=== PATIENT | male | born 1970 | race Caucasian/White ===

== ENCOUNTER 2017-09-20 17:00 | Emergency (ER) | payer MEDICARE, OTHER ==
[2017-09-20] MEDS ORDERED: PROPARACAINE 0.5% OPHTH DROPS 15 ML BTL LEFT EYE STA (17:23)
[2017-09-20] MEDS ORDERED: TOBRAMYCIN 0.3% OPHTH DROPS 5 ML BTL LEFT EYE STA (18:14)
--- NOTE | 2017-09-20 18:24 | ED ---
General Adult HPI - General Chief complaint: ENT Stated complaint: fb left eye Time Seen by Provider: 09/20/17 17:23 Source: patient, RN notes reviewed Mode of arrival: ambulatory Limitations: no limitations - History of Present Illness Initial comments: This is a 46-year-old male who presents to the emergency department with chief complaint of left eye foreign body. Patient states that later this morning he developed left eye irritation. He states that he felt like he had a foreign body in his eye. He denies working around metal. He denies any vision changes or significant eye pain. He states that he did present to [facility] where they noticed a foreign body in the cornea but were unable to remove it. Kortney is at bedside and states that she did try to perform saline flushes at home. Patient denies any contact lens use. Denies recent fevers or chills, chest pain or shortness of breath, dizziness or headache, nausea or vomiting. - Related Data Allergies Allergy/AdvReac Type Severity Reaction Status Date / Time sulfamethoxazole Allergy Rash/Hives Verified 09/20/17 17:11 [From Bactrim] trimethoprim [From Bactrim] Allergy Rash/Hives Verified 09/20/17 17:11 Review of Systems ROS Statement: Those systems with pertinent positive or pertinent negative responses have been documented in the HPI. ROS Other: All systems not noted in ROS Statement are negative. Past Medical History Past Medical History: Hyperlipidemia, Thyroid Disorder History of Any Multi-Drug Resistant Organisms: None Reported Past Surgical History: Back Surgery, Hernia Repair, Tonsillectomy Past Psychological History: Anxiety Smoking Status: Never smoker Past Alcohol Use History: Occasional Past Drug Use History: None Reported General Exam - General Exam Comments Initial Comments: General: Awake and alert, well-developed; in no apparent distress. HEENT: Head atraumatic, normocephalic. Pupils are equal, round and reactive to light. Extraocular movements intact. Left conjunctiva is injected. There is a metallic corneal foreign body noted at approximately 8 PM at the outer border of the left iris. No foreign bodies noted under superior or inferior eyelids. Negative Josi's. Oropharynx moist without erythema or exudate. Neck: Supple. Normal ROM. Cardiovascular: Regular rate and rhythm. No murmurs, rubs or gallops. Chest symmetrical. Respiratory: Lungs clear to auscultation bilaterally. No wheezes, rales or rhonchi. Normal respiratory effort with no use of accessory muscles. Musculoskeletal: Normal ROM, no tenderness bilateral upper and lower extremities. Ambulating normally. Skin: [place], warm and dry without rashes or lesions. Neurological: Alert and oriented x3. CN II-XII grossly intact. Speech is fluent and answers are appropriate. No focal neuro deficits. Psychiatric: Normal mood and affect. No overt signs of depression or anxiety noted. Limitations: no limitations Course Vital Signs 09/20/17 17:09 Temperature 98.7 F Pulse Rate 65 Respiratory 18 Rate Blood Pressure 146/83 O2 Sat by Pulse 99 Oximetry Medical Decision Making - Medical Decision Making This is a 46-year-old male who presents to the emergency department with chief complaint of left corneal foreign body. Patient denies any significant eye pain or vision loss/changes. He states that he developed left eye irritation earlier today but does not recall a specific incident that would've caused a metal object to enter his eye. A metallic foreign body was noted at the border of the left iris. An attempt was made to remove it with an 18-gauge needle and this was successful for removing a piece of the metal. This case was then discussed with attending physician, Dr. Baires who also evaluated the patient. Recommended attempting to remove with the Dunn brush. Frances brush was used and rust ring was successfully removed. There does appear to be slight remnant of rust ring. Patient will be started on tobramycin eyedrops and will be given referral to ophthalmology. Patient recommended to follow up within 1-2 days. Vital signs are stable and patient is in no acute distress. He will be discharged home at this time. All questions were answered. Disposition Clinical Impression: Corneal foreign body Disposition: HOME SELF-CARE Condition: Good Instructions: Eye Foreign Body (ED), Tobramycin (Into the eye) Additional Instructions: Please apply 1-2 drops to the left eye every 4 hours for the next 5 days. Please follow up with Dr. Robles, ophthalmology within 1-2 days. Please follow up with primary care provider within 1-2 days. Return to emergency department if symptoms should worsen or any concerns arise. Is patient prescribed a controlled substance at d/c from ED?: No Referrals: Martha Sanchez DO [Primary Care Provider] - 1-2 days Allen Robles MD [STAFF PHYSICIAN] - 1-2 days Time of Disposition: 18:25
[2017-09-20 18:35] VITALS: BP 132/80; PULSE 98; RESP 20; TEMP 97.5
== END 2017-09-20 18:35 | disposition home or self-care (01) ==
LOC: EC 17:00
DX: T15.02XA Foreign body in cornea, left eye, initial encounter (principal); Z88.2 Allergy status to sulfonamides
CPT/HCPCS: 65220; 99283

== ENCOUNTER → 2018-12-07 | Outpatient (CLI) | payer MEDICAID, MEDICARE ==
--- NOTE | 2018-12-07 16:40 | MR ---
EXAMINATION TYPE: MR cervical spine wo con DATE OF EXAM: 12/07/2018 COMPARISON: None HISTORY: Pain and numbness into rt upper extremity TECHNIQUE: Multiplanar, multisequence images of the cervical spine were acquired. Cervical vertebra have normal alignment. There is slight narrowing of the C5-6 disc space. There is a minimal posterior disc bulge at C5-6 C6-7 without significant impingement on the spinal canal. Cervi brenton spinal cord has normal signal pattern. There is no edema. Spinal canal measures 9 mm at C5-6. Bra instem is intact. I see no bony destructive process. Facet joints are intact. There is no evidence of cervical paraspinal mass. There is left-sided neural foraminal impingement due to uncovertebral spurring at C5-6. There is righ t side C6-7 neural foraminal impingement due to uncovertebral spurring. IMPRESSION: Findings as above. Left side C5-6 neural foraminal impingement. Right side C6-7 neural foraminal impi ngement. Small posterior disc herniations. No spinal stenosis.
== END | disposition home or self-care (01) ==
LOC: RADMRIMAIN 08:32
PROVIDERS: ATTEND Family Medicine
DX: M54.2 Cervicalgia (principal)
CPT/HCPCS: 72141

== ENCOUNTER → 2019-01-13 | Outpatient (CLI) | payer MEDICAID, MEDICARE ==
[2019-01-13 11:59] VITALS: BP 158/102; PULSE 87
--- NOTE | 2019-01-13 12:18 | P.PAINCN ---
History of Present Illness - Reason for Consult Consult date: 01/13/19 - History of Present Illness This is initial consultation visit for this 48 years old male, with a few month history of severe neck pain with radiation to the right upper extremity, started in August 2018, patient denies any initiating event and reported that the pain is constant, severe and increases with any neck movement, associated with numbness and tingling sensation in the right upper extremity, mainly in the thumb index and middle finger on the right, he denies any motor or sensory deficit he denies any fever or night sweats. He denies any change in the bowel movement or urination, also patient had some low back pain which is started more than 10 years ago he had lumbar fusion surgery and he continued to have some numbness and tingling in his left lower extremity, but his main pain now, is in the neck with radiation to the right upper extremity Past Medical History Past Medical History: Hyperlipidemia, Thyroid Disorder Additional Past Medical History / Comment(s): neck pain, rt shoulder, rt arm numbness tingling History of Any Multi-Drug Resistant Organisms: None Reported Past Surgical History: Back Surgery, Hernia Repair, Tonsillectomy Past Anesthesia/Blood Transfusion Reactions: No Reported Reaction Past Psychological History: Anxiety Smoking Status: Never smoker Past Alcohol Use History: Occasional Past Drug Use History: None Reported Medications and Allergies Home Medications Medication Instructions Recorded Confirmed Type Atorvastatin [Lipitor] 10 mg PO HS 01/09/19 01/13/19 History Cetirizine HCl [Zyrtec ODT] 10 mg PO DAILY 01/09/19 01/13/19 History Ibuprofen 800 mg PO Q6H PRN 01/09/19 01/13/19 History Levothyroxine Sodium [Synthroid] 300 mcg PO DAILY 01/09/19 01/13/19 History Sertraline HCl [Zoloft] 100 mg PO DAILY 01/09/19 01/13/19 History Allergies Allergy/AdvReac Type Severity Reaction Status Date / Time sulfamethoxazole Allergy Rash/Hives Verified 01/09/19 13:28 [From Bactrim] trimethoprim [From Bactrim] Allergy Rash/Hives Verified 01/09/19 13:28 Physical Exam Vitals: Vital Signs Pulse BP Pulse Ox 01/13/19 11:54 87 158/102 95 REVIEW OF ORGAN SYSTEMS: CONSTITUTIONAL: No fevers or chills. No recent weight loss. EYES: History of troubles with vision. No glasses. HEENT: No difficulties with hearing. No nosebleeds. No difficulty swallowing. RESPIRATORY: Past pneumonia. Denies any troubles with breathing or dyspnea on exertion. CARDIOVASCULAR: Denies any chest pain, palpitations, or recent heart attacks. GASTROINTESTINAL: Denies fatty food intolerance. Has change in bowel habits and gas bloat. GENITOURINARY: Denies any blood in urine. Has increased urinary frequency. NEUROLOGICAL: numbness and tingling along the distal extremities. No seizure disorders or headaches. MUSCULOSKELETAL: Has back pain, stiffness or joint arthritis. SKIN: Past t skin cancer. No rash. PSYCHIATRIC: Denies current any suicidal thoughts. ENDOCRINE: Denies current thyroid disorders. Denies any blood sugar glucose intolerance. HEME/LYMPHATIC: Denies any lumps and bumps around the neck. History of deep venous thrombosis. ALLERGY/IMMUNOLOGY: No immunoglobulin therapy. No immune deficiencies. BREAST: Denies current breast lumps, pain or nipple discharge. Physical Examinations : Constitutiona : Cooperative , not in acute distress . HEENT : nech : supple , no Lymphadenopathy , normal thyroid size . eyes : no ptosis , no icterus, no photophobia . ENT : normal of hearing , normal oropharynx , no Thrush . Respiratory : Chest clear to auscultations Bilaterally , no wheezing , no Rhonchi . Cardiovascula : regular rate and rhythem , S1 , S2 , no S3 , no S4. Gastrointestina : abdomen soft no tenderness , bowel sounds , no organomegally . Genitourinary : [place] . neurologic : Cranial nerve II to XII intact , no focal neurological deffecit . psychatric : alert , oriented X 3 , appropriate affect , intact judgment and insight . Lymphatic : no Lymphadenopathy . musculoskeltal : Cervical Spine motor stregnth in the deltoid and biceps, normal right side , normal Left side motor stregnth biceps and the wrist extensors normal right side ,normal left side . motor stregnth in the triceps muscle . normal Right side , normal Left side Decreased sensation in the right upper extremity C5 and C6 dermatomal distribution deep tendon reflexes normal at the biceps , normal at Brachioradialis , normal at triceps. cervical facet loading test: Negative Bilaterally Spurling test positive bilaterally Neck distraction test positive bilaterally. Fer sign positive bilaterally. Lumber spine moter stegnth lower extremities ,thigh and legs 5/5 Right side , 5/5 Left side deep tendon reflexes : normal Knee Jerk , normal ankle Jerk positive lumber facet Loading Test Range of motion of the lumbar spine Flexion 30 degrees, extension 10 degrees strait leg raising test , positive at 60 degree Fabere test positive RT and positive LT . Results Comments: MRI of the cervical spine done at the current [facility]= C5 6 and C6 7 disc bulging and left-sided neural foraminal impingement Assessment and Plan Plan: Assessment and plan=1-cervical radiculopathy. 2-cervical degenerative disc disease. Patient could benefit from cervical epidural steroid injection at C7-T1 level,(right paramedian approach ) Procedure risk and benefits and alternatives discussed with the patient he agreed with the preceding Time with Patient: Greater than 30 PQRS Measure Charge Sheet Measure #130: Documentation of Current Meds in Medical Chart: Patient's medications documented in chart Measure #226: Tobacco Use: Screen & Cessation Intervention: Pt not a tobacco user Measure #111: Pneumonia Vaccination: Pneumococcal vaccine NOT administered or previously given Measure #47: Advance Care Plan: Advance care planning discussed & documented, pt chose/unable to give Measure #412: Opioid Treatment Agreement: No documentation of signed opioid treatment agreement Measure #408: Opioid Therapy Follow-up Evaluation: Patient had NO f/u eval minimum every 3 months during opioid therapy Measure #317: Preventitive Care & Scrn High Bld Press & F/U: Pre-hypertensive or hypertensive BP documented, pt will f/u with PCP Measure #128: Body Mass Index (BMI) Screening & Follow-up: BMI documented ABOVE normal parameters - f/u documented Measure #131: Pain Assessment & Follow-up: Pain positive & plan documented, Follow-up scheduled Measure #431: Unhealthy Alcohol Use Preventative Care & Scrn: Patient not identified as an unhealthy alcohol user PQRS Narrative: Smoking Status Never smoker Blood Pressure 158/102 Pain Intensity [Neck] 4 Scale Used Numeric (1 - 10) Hx Alcohol Use (MH) Yes Home Medications: Ambulatory Orders Atorvastatin [Lipitor] 10 mg PO HS 01/09/19 Cetirizine HCl [Zyrtec ODT] 10 mg PO DAILY 01/09/19 Ibuprofen 800 mg PO Q6H PRN 01/09/19 Levothyroxine Sodium [Synthroid] 300 mcg PO DAILY 01/09/19 Sertraline HCl [Zoloft] 100 mg PO DAILY 01/09/19
== END | disposition home or self-care (01) ==
LOC: PNWHC3 11:05
PROVIDERS: ATTEND Specialist
DX: M50.10 Cervical disc disorder with radiculopathy, unspecified cervical region (principal); Z79.891 Long term (current) use of opiate analgesic; Z79.899 Other long term (current) drug therapy; Z79.890 Hormone replacement therapy
CPT/HCPCS: 99211

== ENCOUNTER 2019-01-23 07:21 | Day surgery (SDC) | payer MEDICAID, MEDICARE ==
[2019-01-21 10:55] VITALS: BMI 36.6
[~2019-01-23 07:21] MED LIST: LACTATED RINGERS 1,000 ML IV SCH
[2019-01-23 07:44] VITALS: RESP 16; TEMP 98.4
--- NOTE | 2019-01-23 08:52 | P.PCN ---
Date of Procedure: 01/23/19 Procedure(s) Performed: . PROCEDURE 1. Cervical epidural steroid injection under fluoroscopic guidance, C6-7 (fluoroscopy images available in the radiology department ) 2. Cervical epidurogram. PREOPERATIVE DIAGNOSIS: 1- Cervical Degenerative Disc Diseases 2- Cervical radiculopathy. POSTOPERATIVE DIAGNOSIS: : 1- Cervical Degenerative Disc Diseases , 2- Cervical radiculopathy. ANESTHESIA: Local anesthesia with lidocaine 1 % , and moderate sedation, with Versed 2 mg and Fentanyl 50 mcg. EBL 0 PROCEDURE INDICATION: The patient with neck pain and radiculitis unresponsive to conservative treatment consents for procedure. PROCEDURE DESCRIPTION / TECHNIQUE: The patient was seen and identified in the preoperative area. Risks, benefits, complications, including but not limited to infections ,bleeding , allergic reactions to the medications ,and not complete pain releife, and alternatives were discussed with the patient, the patient agreed to proceed with the procedure and signed the consent. Patient was taken to the OR and time out was completed. The patient was placed in the prone position on the procedure table. A pillow was placed under the patients chest to increase the cervical interlaminar space. The cervical area was prepped and draped in the usual sterile fashion. Vital signs were closely monitored during the procedure. Conscious sedation was used during the procedure to decrease patients anxiety. Using anterior-posterior fluoroscopy, the C6-7interlaminar space was identified and the skin over this site was marked and then infiltrated with 1% lidocaine subcutaneously. Subsequently, a 20-gauge 3-1/2-inch Tuohy epidural needle was inserted and advanced toward the epidural space by means of the ``hanging-drop technique and guided by AP and lateral fluoroscopy. The correct needle position in the epidural space was verified with the injection of 2 mL of the water soluble contrast dye Isovue-200 and observing an excellent epidurogram with the epidural spread of the dye, after negative aspiration for blood and CSF and in the absence of paresthesias. Again after negative aspiration, mixture containing 20 mg Dexamethasone and 2 ml of preservative-free normal saline injected and a washout of epidurogram was seen. Needle was withdrawn intact, sk in was cleansed, and bandages were applied. Complications= none. Disposition= patient was placed in supine position and transferred to the recovery room area in stable condition and there was no evidence of upper or lower extremity motor or sensory deficit after the procedure patient was discharged from recovery room after discharge criteria met and home discharge instructions was given by the staff and patient will follow with the pain clinic in 2-4 weeks
[2019-01-23 09:32] VITALS: BP 118/87; PULSE 82
[2019-01-23] MEDS ORDERED: IV FLUID CONTINUATION 1,000 ML IV ONE (09:39)
--- NOTE | 2019-01-23 11:30 | FL ---
Fluoroscopy HISTORY: Pain 4 seconds fluoroscopy time supplied to the referring clinician. 1 intraoperative C-arm images docume nt the procedure. See dictated report from anesthesia.
== END 2019-01-23 09:43 | disposition home or self-care (01) ==
LOC: ORPAIN 07:21
PROVIDERS: ATTEND Specialist
DX: M50.10 Cervical disc disorder with radiculopathy, unspecified cervical region (principal); F41.9 Anxiety disorder, unspecified; E78.5 Hyperlipidemia, unspecified; E07.9 Disorder of thyroid, unspecified; Z88.2 Allergy status to sulfonamides; Z98.1 Arthrodesis status; Z90.89 Acquired absence of other organs; Z98.890 Other specified postprocedural states; Z79.890 Hormone replacement therapy; Z79.899 Other long term (current) drug therapy
CPT/HCPCS: 62321; J2250; J1100; J3010

== ENCOUNTER → 2019-02-06 | Day surgery (SDC) | payer MEDICAID, MEDICARE ==
[2019-02-05 10:34] VITALS: BMI 36.6
[~2019-02-06] MED LIST changes: +IV FLUID CONTINUATION 1,000 ML IV ONE; +LIDOCAINE 1% 20 ML VIAL (10MG/ML) FOR IV START INTRADERMA ONE
[2019-02-06 07:45] VITALS: RESP 16; TEMP 97.4
--- NOTE | 2019-02-06 09:06 | P.PCN ---
Date of Procedure: 02/06/19 Procedure(s) Performed: Diagnosis: Cervical radiculopathy Cervical degenerative disc disease POSTOPERATIVE DIAGNOSIS: Diagnoses: Cervical radiculopathy Cervical degenerative disc disease PROCEDURE Cervical Epidural steroid injection under fluoroscopic guidance at the C7-T1 interspace using right paramedian approach Cervical epidurogram ANESTHESIA: Local with 1% lidocaine 3 ml and IV sedation with Versed and fentanyl, sedation time 12 minutes Fluoroscopy was used for the procedure and images were saved in the radiology portion of the chart. EBL: Minimal PROCEDURE INDICATION: The patient presents with cervical radicular symptoms unresponsive to conservative treatment. This is the second cervical epidural steroid injection. PROCEDURE DESCRIPTION / TECHNIQUE: The patient was seen and identified in the preoperative area. Risks, benefits, complications including but not limited to infections ,bleeding ,allergic reaction to the medications ,nerve damage and incomplete pain relief, and alternatives were discussed with the patient. The patient agreed to proceed with the procedure and signed the consent. IV was started, and vital signs were stable. Patient was taken to the OR and time out was completed. The patient was placed in the prone position on procedure table and a pillow was placed under the chest area. The cervical area was prepped and draped in the usual sterile fashion. Conscious sedation was used during the procedure to decrease patients anxiety. Vital signs was monitored during the entire procedure. Using anterior-posterior fluoroscopy, the C7-T1 interlaminar space was identified and the skin over this site was marked and then infiltrated with 1% l idocaine subcutaneously. Subsequently, a 20-gauge Tuohy epidural needle was inserted and advanced toward the epidural space using the loss of resistance technique and guided by AP and 50 oblique fluoroscopy. The correct needle position in the epidural space was verified. After negative aspiration for blood and CSF and in the absence of paresthesias, Isovue 200 2 mL's was injected under live fluoroscopy with good epidural spread. After negative aspiration, a 5 ml mixture containing 10 mg of dexamethasone, 3 mL of preservative free normal saline and 1 mL of 1% lidocaine was injected. Needle was withdrawn intact, skin was cleansed, and bandages were applied. Comments: Initial placement of the needle in the epidural space revealed vascular uptake. The needle was removed and repositioned, with good epidural spread. DISPOSITION / PLANS: The patient was placed in a supine position and transferred to the recovery area in a stable condition for observation. There was no evidence of lower extremity motor or sensory deficit after the procedure. Patient was discharged from the recovery room after meeting discharge criteria. Home discharge instructions were given to the patient by the staff. The patient will be scheduled a follow-up in the clinic in 2-4 weeks.
[2019-02-06 09:24] VITALS: BP 128/85; PULSE 74
--- NOTE | 2019-02-06 11:58 | FL ---
Fluoroscopy HISTORY: Pain 9 seconds fluoroscopy time supplied to the referring clinician. 3 intraoperative C-arm images docume nt the procedure. See dictated report from anesthesia.
== END ==
LOC: ORPAIN 07:27
PROVIDERS: ATTEND Anesthesiology
DX: M50.10 Cervical disc disorder with radiculopathy, unspecified cervical region (principal); E78.5 Hyperlipidemia, unspecified; E07.9 Disorder of thyroid, unspecified; F41.9 Anxiety disorder, unspecified; Z98.1 Arthrodesis status; Z79.3 Long term (current) use of hormonal contraceptives; Z79.899 Other long term (current) drug therapy; Z88.2 Allergy status to sulfonamides
CPT/HCPCS: 62321; J2250; J1100; J3010; Q9966; 99152

== ENCOUNTER → 2019-03-06 | Outpatient (CLI) | payer MEDICAID, MEDICARE ==
--- NOTE | 2019-03-10 07:56 | P.PAINPG ---
Subjective Progress Note Date: 03/06/19 This is a follow-up visit for this 48 years old male, with a few month history of severe neck pain with radiation to the right upper extremity, started in August 2018, diagnosed with cervical radiculopathy and cervical degenerative disc disease. He underwent 2 cervical epidural steroid injections and reports excellent relief from these 2 procedures. His pain is rated as 0/10 in his neck. He does have some mild tingling in his right hand. Today, he would like us to address his low back pain. He has a history of L4 to sacrum fusion in 2011. He currently complains of low back pain radiating to left lateral hip, lateral thigh and front of left thigh, usually not past the knee. He does have numbness and burning in this distribution. Pain has been present since his surgery in 2011. Pain is worse with standing. He does have subjective left leg weakness. He currently takes Motrin 800 when necessary for pain. Low back Pain is rated as 4/10 at best and 10/10 at worst. He has not had any imaging recently of his low back. Review of systems is negative for chest pain, shortness of breath, new onset weakness, numbness/tingling, abdominal pain, malaise, fever, night sweats, chills, homicidal or suicidal ideation, or bowel or bladder incontinence. Physical exam: Vitals: Reviewed in EMR GENERAL: Well appearing, in no acute distress PSYCH: Mood and affect is appropriate. Awake, alert, and oriented SKIN: Skin color, texture, turgor normal, no rashes or lesions HEENT: Normocephalic, atraumatic. EOM intact CV: No pedal edema RESP: Respirations are unlabored, no audible wheezing GI: Abdomen non-distended MUSCULOSKELETAL: Bilateral upper and lower extremity strength is normal and symmetric. No atrophy or tone abnormalities are noted. Neck: No pain to palpation over the cervical paraspinous muscles. Spurling negative, Axial Loading Test negative, Yoder's sign negative. No pain with neck flexion, extension, or lateral flexion. No obvious deformity or signs of trauma. Normal cervical lordotic curve and normal cervical spine range of motion Lumbar spine: Straight leg raising in the sitting position is negative for radicular pain. Tenderness to palpation over the lumbar spine and paraspinous muscles bilaterally. Negative for pain with facet loading and back extension/ rotation. Buttocks: Tenderness to palpation over the left PSIS, left [place] test positive, left sacral thrust positive, left Gaenslen's test positive Extremities: Peripheral joint ROM is full and pain free without obvious instability or laxity in all four extremities. No edema or skin discolorations noted. Gait: Gait is normal NEUR: Bilateral upper and lower extremity coordination and muscle stretch reflexes are physiologic and symmetric. Negative clonus bilaterally. No loss of sensation is noted. Results Comments: MRI of the cervical spine done at the current [facility]= C5 6 and C6 7 disc bulging and left-sided neural foraminal impingement Assessment and Plan Plan: Assessment and plan= 1-cervical radiculopathy. 2-cervical degenerative disc disease. 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 I gave him prescription for the lumbar MRI. We also discussed a caudal epidural steroid injection with lysis of adhesions given his history of back surgery. Patient would like to think about further procedures prior to proceeding, and will call our clinic when he makes a decision. We can proceed with left SI joint injection prior to patient obtaining MRI. Follow-up: As needed PQRS Measure Charge Sheet Measure #130: Documentation of Current Meds in Medical Chart: Patient's medications documented in chart Measure #226: Tobacco Use: Screen & Cessation Intervention: Pt not a tobacco user Measure #111: Pneumonia Vaccination: Pneumococcal vaccine NOT administered or previously given Measure #47: Advance Care Plan: Advance care planning discussed & documented, pt chose/unable to give Measure #412: Opioid Treatment Agreement: No documentation of signed opioid treatment agreement Measure #317: Preventitive Care & Scrn High Bld Press & F/U: Normal blood pressure, f/u not required Measure #128: Body Mass Index (BMI) Screening & Follow-up: BMI documented ABOVE normal parameters - f/u documented Measure #131: Pain Assessment & Follow-up: Pain positive & plan documented, Follow-up PRN Measure #431: Unhealthy Alcohol Use Preventative Care & Scrn: Patient not identified as an unhealthy alcohol user PQRS Narrative: Smoking Status Never smoker Pain Intensity [Right Shoulder 0 ] Scale Used Numeric (1 - 10) Hx Alcohol Use (MH) Yes Home Medications: Ambulatory Orders Atorvastatin [Lipitor] 10 mg PO HS 01/09/19 Cetirizine HCl [Zyrtec ODT] 10 mg PO DAILY 01/09/19 Ibuprofen 800 mg PO Q6H PRN 01/09/19 Levothyroxine Sodium [Synthroid] 300 mcg PO DAILY 01/09/19 Sertraline HCl [Zoloft] 200 mg PO DAILY 01/09/19 Controlled Substance Measures - Controlled Substance Measures Is patient prescribed a controlled substance at discharge?: No
== END | disposition home or self-care (01) ==
LOC: PNWHC3 12:45
PROVIDERS: ATTEND Anesthesiology
DX: M50.10 Cervical disc disorder with radiculopathy, unspecified cervical region (principal); M51.36 Other intervertebral disc degeneration, lumbar region; M96.1 Postlaminectomy syndrome, not elsewhere classified; M46.1 Sacroiliitis, not elsewhere classified; Z79.899 Other long term (current) drug therapy; Z79.1 Long term (current) use of non-steroidal anti-inflammatories (NSAID)
CPT/HCPCS: 99211

== ENCOUNTER 2019-05-12 08:00 | Day surgery (SDC) | payer MEDICAID, MEDICARE ==
[2019-05-08 15:50] VITALS: BMI 36.6
[~2019-05-12 08:00] MED LIST changes: -IV FLUID CONTINUATION 1,000 ML IV ONE; -LIDOCAINE 1% 20 ML VIAL (10MG/ML) FOR IV START INTRADERMA ONE
[2019-05-12 08:13] VITALS: RESP 18; TEMP 97.8
[2019-05-12] MEDS ORDERED: LACTATED RINGERS 1,000 ML IV ONE (08:13)
[2019-05-12] MEDS ORDERED: PROPOFOL 10 MG/ML 20 ML VIAL IV ONE (08:31)
--- NOTE | 2019-05-12 08:36 | P.GSHP ---
History of Present Illness H&P Date: 05/12/19 Chief Complaint: Screening colonoscopy This a 48-year-old male been sick for screening colonoscopy. Patient denies any significant GI complaints. He has a previous history of colon polyps. Past Medical History Past Medical History: Hyperlipidemia, Thyroid Disorder Additional Past Medical History / Comment(s): neck pain, rt shoulder, rt arm numbness tingling History of Any Multi-Drug Resistant Organisms: None Reported Past Surgical History: Back Surgery, Hernia Repair, Tonsillectomy Additional Past Surgical History / Comment(s): PAIN CLINIC PROCEDURES Past Anesthesia/Blood Transfusion Reactions: No Reported Reaction, Family History of Problems w/ Anesthesia Additional Past Anesthesia/Blood Transfusion Reaction / Comment(s): dad ponv Smoking Status: Never smoker - Past Family History Mother Family Medical History: No Reported History Medications and Allergies Home Medications Medication Instructions Recorded Confirmed Type Atorvastatin [Lipitor] 10 mg PO HS 01/09/19 05/08/19 History Cetirizine HCl [Zyrtec ODT] 10 mg PO DAILY 01/09/19 05/08/19 History Ibuprofen 800 mg PO Q6H PRN 01/09/19 05/08/19 History Levothyroxine Sodium [Synthroid] 300 mcg PO DAILY 01/09/19 05/08/19 History Sertraline HCl [Zoloft] 200 mg PO DAILY 01/09/19 05/08/19 History Cholecalciferol [Vitamin D3 (25 2,000 unit PO DAILY 05/08/19 05/08/19 History Mcg = 1000 Iu)] Niacin 250 mg PO DAILY 05/08/19 05/08/19 History Testosterone Inj 1 dose INJ Q7D 05/08/19 05/08/19 History Allergies Allergy/AdvReac Type Severity Reaction Status Date / Time sulfamethoxazole Allergy Rash/Hives Verified 05/08/19 15:42 [From Bactrim] trimethoprim [From Bactrim] Allergy Rash/Hives Verified 05/08/19 15:42 Surgical - Exam Vital Signs Temp Pulse Resp BP Pulse Ox 97.8 F 94 18 156/87 95 05/12/19 08:12 05/12/19 08:12 05/12/19 08:12 05/12/19 08:12 05/12/19 08:12 - General well developed, well nourished, no distress - Eyes PERRL - ENT normal pinna - Neck no masses - Respiratory normal expansion - Cardiovascular Rhythm: regular - Abdomen Abdomen: soft, non tender Assessment and Plan Assessment: History: Possible. We'll perform screening colonoscopy.
[2019-05-12 08:52] VITALS: BP 124/74; PULSE 98
--- NOTE | 2019-05-12 08:52 | P.OP ---
Date of Procedure: 05/12/19 Preoperative Diagnosis: Screening colonoscopy Postoperative Diagnosis: Diverticulosis Procedure(s) Performed: Colonoscopy Anesthesia: MAC Surgeon: Juan Alberto Benson Condition: stable Disposition: PACU Description of Procedure: The patient's placed on the endoscopy table in the lateral position. He received IV sedation. Digital rectal exam performed which revealed no rebound. The possible colonoscope was then placed patient anus passed throughout the entire colon. The ileocecal valve was visualized. The cecum, ascending and transverse colon appeared normal. In the descending and sigmoid colon there was mild diverticulosis. The scope was then brought back the rectum and this appeared normal. Scope was withdrawn for patient.
== END 2019-05-12 09:24 | disposition home or self-care (01) ==
LOC: ORWHC2ENDO 08:00
PROVIDERS: ATTEND Surgery
DX: Z12.11 Encounter for screening for malignant neoplasm of colon (principal); K57.30 Diverticulosis of large intestine without perforation or abscess without bleeding; Z86.010 Personal history of colon polyps; E78.5 Hyperlipidemia, unspecified; E07.9 Disorder of thyroid, unspecified; K21.9 Gastro-esophageal reflux disease without esophagitis; F41.9 Anxiety disorder, unspecified; E66.9 Obesity, unspecified; R20.0 Anesthesia of skin; R20.2 Paresthesia of skin; M54.2 Cervicalgia; M25.511 Pain in right shoulder; Z98.890 Other specified postprocedural states; Z90.89 Acquired absence of other organs; Z79.899 Other long term (current) drug therapy; Z79.890 Hormone replacement therapy; Z88.2 Allergy status to sulfonamides; Z68.37 Body mass index [BMI] 37.0-37.9, adult
CPT/HCPCS: G0121; J2704; 45378

== ENCOUNTER → 2020-03-08 | Outpatient (CLI) | payer MEDICAID, MEDICARE ==
[2020-03-08 11:23] LABS: HCT 48.5 % (39.0-53.0); HGB 16.3 gm/dL (13.0-17.5); MCH 31.4 pg (25.0-35.0); MCHC 33.7 g/dL (31.0-37.0); MCV 93.2 fL (80.0-100.0); Platelet Count 216 k/uL (150-450); RDW 12.8 % (11.5-15.5); WBC 7.7 k/uL (3.8-10.6)
[2020-03-08 19:03] LABS: African American GFR (CKD) 73.2 (60.0-200.0); Albumin 4.8 g/dL (3.80-4.90); Albumin/Globulin Ratio 2.18 (1.60-3.17); Anion Gap 5.8 mmol/L (4.00-12.00); Carbon Dioxide 31.2 mmol/L (21.6-31.8); Chol/HDL Ratio 3.5; Globulin 2.2 g/dL (1.6-3.3); LDL Cholesterol,Calculated 64.2 mg/dL (0.0-131.0); Non-African American GFR(CKD) 63.2 (60.0-200.0); Potassium 4.7 mmol/L (3.5-5.5); Total Bilirubin 0.7 mg/dL (0.3-1.2); VLDL Calculation 40.8 mg/dL (5.00-40.00)
[2020-03-08 19:11] LABS: T4, Free (Free Thyroxine) 1.4 ng/dL (0.80-1.80)
== END | disposition home or self-care (01) ==
LOC: LABWHC1 09:47
PROVIDERS: ATTEND Family Medicine
DX: E03.9 Hypothyroidism, unspecified (principal); R79.89 Other specified abnormal findings of blood chemistry; R03.0 Elevated blood-pressure reading, without diagnosis of hypertension
CPT/HCPCS: 36415; 80053; 80061; 84402; 84403; 84439; 84443; 84481; 85027

== ENCOUNTER 2020-06-11 22:58 | Emergency (ER) | payer MEDICAID, MEDICARE ==
[2020-06-11 23:06] VITALS: TEMP 99
[2020-06-11] MEDS ORDERED: SODIUM CHLORIDE 0.9% 1,000 ML IV STA (23:26)
--- NOTE | 2020-06-11 23:38 | ED ---
General Adult HPI - General Chief complaint: Dizziness Stated complaint: Syncope Time Seen by Provider: 06/11/20 23:12 Source: patient, family Mode of arrival: wheelchair Limitations: no limitations - History of Present Illness Initial comments: Patient is a 49-year-old male with history of thyroid disorder, hyperlipidemia, presenting to the emergency department after he had a syncopal episode at home tonight. Patient states he was crouched down low looking in his freezer and when he stood up, had a syncopal event. Patient states Nexium remembered is waking up on the floor. He did hit his head on the tile floor. He is complaining of a headache, lightheadedness and some nausea. He denies any pain in his extremities. He denies any blurry vision, no chest pain or shortness of breath. No recent fever or chills. He denies any abdominal pain, no vomiting or diarrhea. states that patient has been monitoring his blood pressure and it seems to be elevated lately, they have been monitoring this at his PCPs office, he is currently not taking anything for hypertension. He has no further complaints at this time. Upon arrival to the ER, his vital signs are stable. - Related Data Home Medications Medication Instructions Recorded Confirmed Atorvastatin [Lipitor] 10 mg PO HS 01/09/19 05/08/19 Cetirizine HCl [Zyrtec ODT] 10 mg PO DAILY 01/09/19 05/08/19 Ibuprofen 800 mg PO Q6H PRN 01/09/19 05/08/19 Levothyroxine Sodium [Synthroid] 300 mcg PO DAILY 01/09/19 05/08/19 Sertraline HCl [Zoloft] 200 mg PO DAILY 01/09/19 05/08/19 Cholecalciferol [Vitamin D3 (25 2,000 unit PO DAILY 05/08/19 05/08/19 Mcg = 1000 Iu)] Niacin 250 mg PO DAILY 05/08/19 05/08/19 Testosterone Inj 1 dose INJ Q7D 05/08/19 05/08/19 Allergies Allergy/AdvReac Type Severity Reaction Status Date / Time sulfamethoxazole Allergy Rash/Hives Verified 06/11/20 23:05 [From Bactrim] trimethoprim [From Bactrim] Allergy Rash/Hives Verified 06/11/20 23:05 Review of Systems ROS Statement: Those systems with pertinent positive or pertinent negative responses have been documented in the HPI. ROS Other: All systems not noted in ROS Statement are negative. Past Medical History Past Medical History: Hyperlipidemia, Thyroid Disorder Additional Past Medical History / Comment(s): neck pain, rt shoulder, rt arm numbness tingling History of Any Multi-Drug Resistant Organisms: None Reported Past Surgical History: Back Surgery, Hernia Repair, Tonsillectomy Additional Past Surgical History / Comment(s): PAIN CLINIC PROCEDURES Past Anesthesia/Blood Transfusion Reactions: No Reported Reaction, Family History of Problems w/ Anesthesia Additional Past Anesthesia/Blood Transfusion Reaction / Comment(s): dad ponv Past Psychological History: Anxiety Smoking Status: Never smoker Past Alcohol Use History: Occasional Past Drug Use History: None Reported - Past Family History Mother Family Medical History: No Reported History General Exam - General Exam Comments Initial Comments: GENERAL: Patient is well-developed and well-nourished. Patient is nontoxic and in no acute distress. HEAD: Patient has a small hematoma at the front of his head, at the hairline, there is a small abrasion to this area as well. No signs of basal skull fracture. EYES: Pupils equal round and reactive to light, extraocular movements intact, sclera anicteric, conjunctiva are normal. Eyelids were unremarkable. ENT: TMs normal, nares patent, oropharynx clear without exudates. Moist mucous membranes. NECK: Normal range of motion, supple without lymphadenopathy or JVD. No midline tenderness. LUNGS: Unlabored respirations. Breath sounds clear to auscultation bilaterally and equal. No wheezes rales or rhonchi. HEART: Regular rate and rhythm without murmurs, rubs or gallops. ABDOMEN: Soft, nontender, normoactive bowel sounds. No guarding, no rebound. No masses appreciated. : Deferred MUSCULOSKELETAL: Normal extremities with adequate strength and normal range of motion, no pitting or edema. No clubbing or cyanosis. NEUROLOGICAL: Patient is alert and oriented x 3. Motor and sensory are also intact. Cranial nerves II through XII grossly intact. Symmetrical smile. Normal speech, normal gait. PSYCH: Normal mood, normal affect. SKIN: Warm, Dry, normal turgor, no rashes or lesions noted. Limitations: no limitations Course Vital Signs 06/11/20 06/12/20 06/12/20 23:00 00:25 01:26 Temperature 99.0 F Pulse Rate 112 H 98 Respiratory 20 18 Rate Blood Pressure 156/91 147/102 145/92 O2 Sat by Pulse 97 96 Oximetry 06/12/20 01:54 Temperature Pulse Rate 90 Respiratory 18 Rate Blood Pressure O2 Sat by Pulse 98 Oximetry EKG Findings - EKG Comments: EKG Findings:: Sinus tachycardia, septal infarct, age undetermined, no signs of an acute process. Ventricular rate 106, SD interval 160, QT 322. Medical Decision Making - Medical Decision Making Patient is a 49-year-old male here after having a syncopal event at home. Patient was crouched on looking in his freezer when he stood up had a syncopal event. He is complaining of a headache, nausea and some lightheadedness. He is a small hematoma to his front head. Labs are unremarkable including a normal troponin. Urine is normal. Chest x-ray and brain CT showed no acute process, EKG is showing sinus tach otherwise normal. Patient received 1 L fluids and does report improvement of symptoms. Patient's blood pressures improved to 145/92. Patient was able to sit and stand without lightheadedness. I discussed with patient this is most likely a vasovagal episode, along with some dehydration. I recommended following up with his family doctor. Patient is stable for discharge. Patient is in agreement with this plan of care. Return parameters were discussed with the patient and they verbalized understanding. Case discussed with Dr. Leon. - Lab Data Result diagrams: 06/11/20 23:35 06/11/20 23:35 Lab Results 06/11/20 06/11/20 06/11/20 Range/Units 23:35 23:35 23:35 WBC 9.5 (3.8-10.6) k/uL RBC 5.16 (4.30-5.90) m/uL Hgb 16.0 (13.0-17.5) gm/dL Hct 46.9 (39.0-53.0) % MCV 90.9 (80.0-100.0) fL MCH 31.0 (25.0-35.0) pg MCHC 34.1 (31.0-37.0) g/dL RDW 13.1 (11.5-15.5) % Plt Count 217 (150-450) k/uL MPV 7.9 Neutrophils % 68 % Lymphocytes % 20 % Monocytes % 4 % Eosinophils % 7 % Basophils % 1 % Neutrophils # 6.5 (1.3-7.7) k/uL Lymphocytes # 1.9 (1.0-4.8) k/uL Monocytes # 0.4 (0-1.0) k/uL Eosinophils # 0.7 (0-0.7) k/uL Basophils # 0.1 (0-0.2) k/uL PT 10.1 (9.0-12.0) sec INR 0.9 (<1.2) APTT 22.1 (22.0-30.0) sec Sodium 142 (137-145) mmol/L Potassium 4.1 (3.5-5.1) mmol/L Chloride 106 (98-107) mmol/L Carbon Dioxide 27 (22-30) mmol/L Anion Gap 9 mmol/L BUN 15 (9-20) mg/dL Creatinine 1.04 (0.66-1.25) mg/dL Est GFR (CKD-EPI)AfAm >90 (>60 ml/min/1.73 sqM) Est GFR (CKD-EPI)NonAf 83 (>60 ml/min/1.73 sqM) Glucose 105 H (74-99) mg/dL Calcium 9.8 (8.4-10.2) mg/dL Total Bilirubin 0.6 (0.2-1.3) mg/dL AST 40 (17-59) U/L ALT 41 (4-49) U/L Alkaline Phosphatase 81 (38-126) U/L Troponin I (0.000-0.034) ng/mL Total Protein 7.4 (6.3-8.2) g/dL Albumin 4.6 (3.5-5.0) g/dL Urine Color Urine Appearance (Clear) Urine pH (5.0-8.0) Ur Specific [place] (1.001-1.035) Urine Protein (Negative) Urine Glucose (UA) (Negative) Urine Ketones (Negative) Urine Blood (Negative) Urine Nitrite (Negative) Urine Bilirubin (Negative) Urine Urobilinogen (<2.0) mg/dL Ur Leukocyte Esterase (Negative) Urine RBC (0-5) /hpf Urine WBC (0-5) /hpf Hyaline Casts (0-2) /lpf Urine Mucus (None) /hpf 06/11/20 06/11/20 Range/Units 23:35 23:42 WBC (3.8-10.6) k/uL RBC (4.30-5.90) m/uL Hgb (13.0-17.5) gm/dL Hct (39.0-53.0) % MCV (80.0-100.0) fL MCH (25.0-35.0) pg MCHC (31.0-37.0) g/dL RDW (11.5-15.5) % Plt Count (150-450) k/uL MPV Neutrophils % % Lymphocytes % % Monocytes % % Eosinophils % % Basophils % % Neutrophils # (1.3-7.7) k/uL Lymphocytes # (1.0-4.8) k/uL Monocytes # (0-1.0) k/uL Eosinophils # (0-0.7) k/uL Basophils # (0-0.2) k/uL PT (9.0-12.0) sec INR (<1.2) APTT (22.0-30.0) sec Sodium (137-145) mmol/L Potassium (3.5-5.1) mmol/L Chloride (98-107) mmol/L Carbon Dioxide (22-30) mmol/L Anion Gap mmol/L BUN (9-20) mg/dL Creatinine (0.66-1.25) mg/dL Est GFR (CKD-EPI)AfAm (>60 ml/min/1.73 sqM) Est GFR (CKD-EPI)NonAf (>60 ml/min/1.73 sqM) Glucose (74-99) mg/dL Calcium (8.4-10.2) mg/dL Total Bilirubin (0.2-1.3) mg/dL AST (17-59) U/L ALT (4-49) U/L Alkaline Phosphatase (38-126) U/L Troponin I <0.012 (0.000-0.034) ng/mL Total Protein (6.3-8.2) g/dL Albumin (3.5-5.0) g/dL Urine Color Yellow Urine Appearance Clear (Clear) Urine pH 6.5 (5.0-8.0) Ur Specific [place] 1.025 (1.001-1.035) Urine Protein 1+ H (Negative) Urine Glucose (UA) Negative (Negative) Urine Ketones Negative (Negative) Urine Blood Negative (Negative) Urine Nitrite Negative (Negative) Urine Bilirubin Negative (Negative) Urine Urobilinogen 2.0 (<2.0) mg/dL Ur Leukocyte Esterase Negative (Negative) Urine RBC 3 (0-5) /hpf Urine WBC 2 (0-5) /hpf Hyaline Casts 1 (0-2) /lpf Urine Mucus Few H (None) /hpf Disposition Clinical Impression: Vasovagal syncope, Dehydration Disposition: HOME SELF-CARE Condition: Stable Instructions (If sedation given, give patient instructions): Dehydration (ED) Additional Instructions: Please return to the Emergency Department if symptoms worsen or any other lamar rns. Increase your water intake, regular diet. Please follow-up with your regular doctor. Is patient prescribed a controlled substance at d/c from ED?: No Referrals: Martha Sanchez DO [Primary Care Provider] - 1-2 days
[2020-06-11 23:45] LABS: Basophils # (A) 0.1 k/uL (0-0.2); Basophils % (A) 1 %; Eosinophils # (A) 0.7 k/uL (0-0.7); Eosinophils % (A) 7 %; HCT 46.9 % (39.0-53.0); Lymphocytes # (A) 1.9 k/uL (1.0-4.8); Lymphocytes % (A) 20 %; MCHC 34.1 g/dL (31.0-37.0); MCV 90.9 fL (80.0-100.0); Mean Platelet Volume 7.9; Monocytes # (A) 0.4 k/uL (0-1.0); Monocytes % (A) 4 %; Neutrophils # (A) 6.5 k/uL (1.3-7.7); Neutrophils % (A) 68 %; Platelet Count 217 k/uL (150-450); RBC 5.16 m/uL (4.30-5.90); RDW 13.1 % (11.5-15.5); WBC 9.5 k/uL (3.8-10.6)
[2020-06-11 23:53] LABS: ALT 41 U/L (4-49); AST 40 U/L (17-59); African American GFR (CKD) >90 (>60 ml/min/1.73 sqM); Albumin 4.6 g/dL (3.5-5.0); Alkaline Phosphatase 81 U/L (38-126); Anion Gap 9 mmol/L; Blood Urea Nitrogen 15 mg/dL (9-20); Calcium 9.8 mg/dL (8.4-10.2); Carbon Dioxide 27 mmol/L (22-30); Chloride 106 mmol/L (98-107); Glucose 105 mg/dL (74-99); Non-African American GFR(CKD) 83 (>60 ml/min/1.73 sqM); Potassium 4.1 mmol/L (3.5-5.1); Sodium 142 mmol/L (137-145); Total Bilirubin 0.6 mg/dL (0.2-1.3); Total Protein 7.4 g/dL (6.3-8.2)
--- NOTE | 2020-06-11 23:53 | XR ---
EXAMINATION TYPE: XR chest 2V DATE OF EXAM: 06/11/2020 COMPARISON: 12/26/2012 HISTORY: Syncope TECHNIQUE: 2 views FINDINGS: Heart and mediastinum are normal. Lungs are clear. Diaphragm is normal. Bony thorax is inta ct. The pulmonary vascularity is normal. There are chest leads. IMPRESSION: Normal chest. No change.
[2020-06-11 23:59] LABS: Appearance,Urine Clear (Clear); Bilirubin,Urine Negative (Negative); Blood,Urine Negative (Negative); Color,Urine Yellow; Glucose,Urine (UA) Negative (Negative); Hyaline Casts,Urine 1 /lpf (0-2); Ketones,Urine Negative (Negative); Leukocyte Esterase,Urine Negative (Negative); Mucus,Urine Few /hpf; Nitrite,Urine Negative (Negative); PH, Urine 6.5 (5.0-8.0); Protein,Urine 1+ (Negative); RBC,Urine 3 /hpf (0-5); Specific Gravity,Urine 1.025 (1.001-1.035); WBC,Urine 2 /hpf (0-5)
--- NOTE | 2020-06-12 | CT ---
EXAMINATION TYPE: CT brain wo con DATE OF EXAM: 06/11/2020 COMPARISON: 11/08/2010 HISTORY: Syncope, Fall CT DLP: 1168.40 mGycm Automated exposure control for dose reduction was used. Ventricles have normal size. There is no mass effect nor midline shift. There is no sign of intracran ial hemorrhage. The calvarium is intact. There is no evidence of cerebral edema. There is normal aera tion of the mastoid sinuses. Skull base is intact. IMPRESSION: Normal unenhanced head CT scan.
[2020-06-12 00:05] LABS: INR 0.9 (<1.2); Partial Thromboplastin Time 22.1 sec (22.0-30.0); Prothrombin Time 10.1 sec (9.0-12.0)
[2020-06-12 00:29] VITALS: RESP 18
[2020-06-12 01:27] VITALS: BP 145/92
[2020-06-12 01:55] VITALS: PULSE 90
== END 2020-06-12 01:55 | disposition home or self-care (01) ==
LOC: EC 22:58
DX: E86.0 Dehydration (principal); R55 Syncope and collapse; E78.5 Hyperlipidemia, unspecified; F41.9 Anxiety disorder, unspecified
CPT/HCPCS: 36415; 70450; 71046; 80053; 81001; 84484; 85025; 85610; 85730; 93005; 96360; 99284

== ENCOUNTER 2022-07-07 17:44 | Observation (INO) | payer MEDICAID, MEDICARE ==
[2022-07-07] MEDS ORDERED: SODIUM CHLORIDE 0.9% 500 ML 500 ML IV ONE (18:00)
[2022-07-07] MEDS ORDERED: ASPIRIN 325 MG TAB PO STA (18:00)
--- NOTE | 2022-07-07 18:24 | XR ---
EXAMINATION TYPE: XR chest 2V DATE OF EXAM: 07/07/2022 COMPARISON: 06/11/2020 TECHNIQUE: PA and lateral views submitted. HISTORY: Chest pain FINDINGS: The lungs are clear and there is no pneumothorax, pleural effusion, or focal pneumonia. Heart size normal and no overt failure. Osseous structures demonstrate hypertrophic and degenerative changes of the spine. Hyperinflation suggests COPD. IMPRESSION: 1. No acute process.
[2022-07-07 18:25] LABS: Basophils % (A) 1 %; Eosinophils # (A) 0.4 k/uL (0-0.7); Eosinophils % (A) 4 %; HGB 16.7 gm/dL (13.0-17.5); Lymphocytes # (A) 1.5 k/uL (1.0-4.8); Lymphocytes % (A) 17 %; MCH 31.5 pg (25.0-35.0); MCV 92.5 fL (80.0-100.0); Mean Platelet Volume 8.3; Monocytes # (A) 0.3 k/uL (0-1.0); Monocytes % (A) 4 %; Neutrophils # (A) 6.6 k/uL (1.3-7.7); Neutrophils % (A) 74 %; Platelet Count 244 k/uL (150-450); RDW 13.7 % (11.5-15.5)
[2022-07-07 18:30] LABS: Albumin 4.6 g/dL (3.5-5.0); Calcium 9.5 mg/dL (8.4-10.2); Magnesium 2.1 mg/dL (1.6-2.3); Potassium 4.4 mmol/L (3.5-5.1); Total Bilirubin 0.5 mg/dL (0.2-1.3); Total Protein 7.5 g/dL (6.3-8.2)
--- NOTE | 2022-07-07 18:30 | ED ---
General Adult HPI - General Chief complaint: Chest Pain Stated complaint: CHEST PAIN/LEFT ARM NUMB Time Seen by Provider: 07/07/22 17:55 Source: patient, RN notes reviewed, old records reviewed Mode of arrival: ambulatory Limitations: no limitations - History of Present Illness Initial comments: 51-year-old male presents for evaluation of one hour of central chest pain which he describes as a tightness associated with dyspnea. No prior history of CAD. Patient states he was working on his car and developed this pain and pressure. This was associated with some left arm paresthesia. No focal weakness. No vomiting. Patient states he was diaphoretic. - Related Data Home Medications Medication Instructions Recorded Confirmed Atorvastatin [Lipitor] 10 mg PO HS 01/09/19 05/08/19 Cetirizine HCl [Zyrtec ODT] 10 mg PO DAILY 01/09/19 05/08/19 Ibuprofen 800 mg PO Q6H PRN 01/09/19 05/08/19 Levothyroxine Sodium [Synthroid] 300 mcg PO DAILY 01/09/19 05/08/19 Sertraline HCl [Zoloft] 200 mg PO DAILY 01/09/19 05/08/19 Cholecalciferol [Vitamin D3 (25 2,000 unit PO DAILY 05/08/19 05/08/19 Mcg = 1000 Iu)] Niacin 250 mg PO DAILY 05/08/19 05/08/19 Testosterone Inj 1 dose INJ Q7D 05/08/19 05/08/19 Allergies Allergy/AdvReac Type Severity Reaction Status Date / Time sulfamethoxazole Allergy Rash/Hives Verified 07/07/22 17:50 [From Bactrim] trimethoprim [From Bactrim] Allergy Rash/Hives Verified 07/07/22 17:50 Review of Systems ROS Statement: Those systems with pertinent positive or pertinent negative responses have been documented in the HPI. ROS Other: All systems not noted in ROS Statement are negative. Past Medical History Past Medical History: Hyperlipidemia, Thyroid Disorder Additional Past Medical History / Comment(s): neck pain, rt shoulder, rt arm numbness tingling History of Any Multi-Drug Resistant Organisms: None Reported Past Surgical History: Back Surgery, Hernia Repair, Tonsillectomy Additional Past Surgical History / Comment(s): PAIN CLINIC PROCEDURES Past Anesthesia/Blood Transfusion Reactions: No Reported Reaction, Family History of Problems w/ Anesthesia Additional Past Anesthesia/Blood Transfusion Reaction / Comment(s): dad ponv Past Psychological History: Anxiety Smoking Status: Never smoker Past Alcohol Use History: Occasional Past Drug Use History: None Reported - Past Family History Mother Family Medical History: No Reported History General Exam Limitations: no limitations General appearance: alert, in no apparent distress Head exam: Present: atraumatic, normocephalic Eye exam: Present: normal appearance, PERRL ENT exam: Present: normal exam Neck exam: Present: normal inspection. Absent: tenderness, meningismus Respiratory exam: Present: normal lung sounds bilaterally. Absent: respiratory distress, wheezes, rales Cardiovascular Exam: Present: normal rhythm, tachycardia GI/Abdominal exam: Present: soft. Absent: distended, tenderness, guarding, r ebound Extremities exam: Present: normal inspection, normal capillary refill. Absent: pedal edema, calf tenderness Neurological exam: Present: alert, oriented X3, CN II-XII intact. Absent: motor sensory deficit Psychiatric exam: Present: normal affect, normal mood Skin exam: Present: warm, dry, intact. Absent: cyanosis Course Vital Signs 07/07/22 07/07/22 07/07/22 17:46 18:30 18:40 Temperature 98.8 F Pulse Rate 131 H 116 H 117 H Respiratory 20 18 18 Rate Blood Pressure 140/109 142/100 143/93 O2 Sat by Pulse 98 98 100 Oximetry 07/07/22 19:22 Temperature Pulse Rate 115 H Respiratory 18 Rate Blood Pressure 133/85 O2 Sat by Pulse 97 Oximetry EKG Findings - EKG Comments: EKG Findings:: EKG: Sinus tachycardia rate of 127 NM interval 152, QRS duration 88, QTC 374, no ST segment elevation Medical Decision Making - Medical Decision Making Was pt. sent in by a medical professional or institution (, PA, METAL ROASTER, urgent care, hospital, or care home...) When possible be specific @ -No Did you speak to anyone other than the patient for history (EMS, parent, family, police, friend...)? What history was obtained from this source @ -No Did you review nursing and triage notes (agree or disagree)? Why? @ -I reviewed and agree with nursing and triage notes Were old charts reviewed (outside hosp., previous admission, EMS record, old EKG, old radiological studies, urgent care reports/EKG's, care home records)? Report findings @ -No old charts were reviewed Differential Diagnosis (chest pain, altered mental status, abdominal pain women, abdominal pain men, vaginal bleeding, weakness, fever, dyspnea, syncope, headache, dizziness, GI bleed, back pain, seizure, CVA, palpatations, mental health, musculoskeletal)? @ -Differential Chest Pain: Stable Angina, Unstable Angina, STEMI, NSTEMI Aortic Dissection, Pneumothorax, Musculoskeletal, Esophageal Spasm GERD, Cholecystitis, Pancreatitis, Zoster, this is not meant to be an all-inclusive list. EKG interpreted by me (3pts min.). @ -As above X-rays interpreted by me (1pt min.). @ -Chest x-ray negative for acute findings, no focal pneumonia, no pneumothorax CT interpreted by me (1pt min.). @ -CT angiography of the chest, shows poor contrast bolus timing but concern for left upper lobe pulmonary embolism U/S interpreted by me (1pt. min.). @ -None done What testing was considered but not performed or refused? (CT, X-rays, U/S, labs)? Why? @ -None What meds were considered but not given or refused? Why? @ -None Did you discuss the management of the patient with other professionals (professionals i.e. , PA, METAL ROASTER, lab, RT, psych nurse, social director, warehouse clerk, teacher, military police officer, continuous pillowcase cutter)? Give summary @ -Case discussed with Arpan hernandez for [facility] Was smoking cessation discussed for >3mins.? @ -No Was critical care preformed (if so, how long)? @ -No Were there social determinants of health that impacted care today? How? (Homelessness, low income, unemployed, alcoholism, drug addiction, transportation, low edu. Level, literacy, decrease access to med. care, [place] [facility], rehab)? @ -No Was there de-escalation of care discussed even if they declined (Discuss DNR or withdrawal of care, Hospice)? DNR status @ -No What co-morbidities impacted this encounter? (DM, HTN, Smoking, COPD, CAD, Cancer, CVA, ARF, Chemo, Hep., AIDS, mental health diagnosis, sleep apnea, morbid obesity)? @ -Hypertension Was patient admitted / discharged? Hospital course, mention meds given and route, prescriptions, significant lab abnormalities, going to OR and other pertinent info. @ -51 -year-old male who presents for evaluation of exertional chest pain and dyspnea. Patient is tachycardic and had positive d-dimer. His EKG did not show any ST segment elevation. He has a normal CBC, normal CMP. His initial troponin is negative. He does have concern for pulmonary embolism although the timing of contrast was poor. He is given aspirin and started on heparin in the emergency department. He will be admitted with cardiology on consultation. Echo has been ordered and results pending. Undiagnosed new problem with uncertain prognosis? @ -No Drug Therapy requiring intensive monitoring for toxicity (Heparin, Nitro, Insulin, Cardizem)? @ -No Were any procedures done? @ -No Diagnosis/symptom? @ -Unstable angina, possible pulmonary embolism Acute, or Chronic, or Acute on Chronic? @ -Acute Uncomplicated (without systemic symptoms) or Complicated (systemic symptoms)? @ -Complicated Side effects of treatment? @ -No Exacerbation, Progression, or Severe Exacerbation? @ -No Poses a threat to life or bodily function? How? (Chest pain, USA, MS, pneumonia, PE, COPD, DKA, ARF, appy, cholecystitis, CVA, Diverticulitis, Homicidal, Suicidal, threat to staff... and all critical care pts) @ -Yes, arrhythmia, cardiac ischemia, - Lab Data Result diagrams: 07/07/22 18:02 07/07/22 18:02 Lab Results 07/07/22 07/07/22 07/07/22 Range/Units 18:02 18:02 18:02 WBC 9.0 (3.8-10.6) k/uL RBC 5.30 (4.30-5.90) m/uL Hgb 16.7 (13.0-17.5) gm/dL Hct 49.0 (39.0-53.0) % MCV 92.5 (80.0-100.0) fL MCH 31.5 (25.0-35.0) pg MCHC 34.0 (31.0-37.0) g/dL RDW 13.7 (11.5-15.5) % Plt Count 244 (150-450) k/uL MPV 8.3 Neutrophils % 74 % Lymphocytes % 17 % Monocytes % 4 % Eosinophils % 4 % Basophils % 1 % Neutrophils # 6.6 (1.3-7.7) k/uL Lymphocytes # 1.5 (1.0-4.8) k/uL Monocytes # 0.3 (0-1.0) k/uL Eosinophils # 0.4 (0-0.7) k/uL Basophils # 0.0 (0-0.2) k/uL PT 10.2 (9.0-12.0) sec INR 1.0 (<1.2) APTT 22.3 (22.0-30.0) sec D-Dimer 0.59 (<0.60) mg/L FEU Sodium 142 (137-145) mmol/L Potassium 4.4 (3.5-5.1) mmol/L Chloride 109 H (98-107) mmol/L Carbon Dioxide 23 (22-30) mmol/L Anion Gap 10 mmol/L BUN 16 (9-20) mg/dL Creatinine 1.10 (0.66-1.25) mg/dL Est GFR (CKD-EPI)AfAm 88 (>60 ml/min/1.73 sqM) Est GFR (CKD-EPI)NonAf 76 (>60 ml/min/1.73 sqM) Glucose 134 H (74-99) mg/dL Calcium 9.5 (8.4-10.2) mg/dL Magnesium 2.1 (1.6-2.3) mg/dL Total Bilirubin 0.5 (0.2-1.3) mg/dL AST 46 (17-59) U/L ALT 42 (4-49) U/L Alkaline Phosphatase 87 (38-126) U/L Troponin I (0.000-0.034) ng/mL Total Protein 7.5 (6.3-8.2) g/dL Albumin 4.6 (3.5-5.0) g/dL Lipase 126 (23-300) U/L 07/07/22 Range/Units 18:02 WBC (3.8-10.6) k/uL RBC (4.30-5.90) m/uL Hgb (13.0-17.5) gm/dL Hct (39.0-53.0) % MCV (80.0-100.0) fL MCH (25.0-35.0) pg MCHC (31.0-37.0) g/dL RDW (11.5-15.5) % Plt Count (150-450) k/uL MPV Neutrophils % % Lymphocytes % % Monocytes % % Eosinophils % % Basophils % % Neutrophils # (1.3-7.7) k/uL Lymphocytes # (1.0-4.8) k/uL Monocytes # (0-1.0) k/uL Eosinophils # (0-0.7) k/uL Basophils # (0-0.2) k/uL PT (9.0-12.0) sec INR (<1.2) APTT (22.0-30.0) sec D-Dimer (<0.60) mg/L FEU Sodium (137-145) mmol/L Potassium (3.5-5.1) mmol/L Chloride (98-107) mmol/L Carbon Dioxide (22-30) mmol/L Anion Gap mmol/L BUN (9-20) mg/dL Creatinine (0.66-1.25) mg/dL Est GFR (CKD-EPI)AfAm (>60 ml/min/1.73 sqM) Est GFR (CKD-EPI)NonAf (>60 ml/min/1.73 sqM) Glucose (74-99) mg/dL Calcium (8.4-10.2) mg/dL Magnesium (1.6-2.3) mg/dL Total Bilirubin (0.2-1.3) mg/dL AST (17-59) U/L ALT (4-49) U/L Alkaline Phosphatase (38-126) U/L Troponin I <0.012 (0.000-0.034) ng/mL Total Protein (6.3-8.2) g/dL Albumin (3.5-5.0) g/dL Lipase (23-300) U/L Disposition Clinical Impression: Unstable angina pectoris, Pulmonary embolism Disposition: ADMITTED IP TO THIS HOSP Condition: Stable Is patient prescribed a controlled substance at d/c from ED?: No Referrals: Martha Sanchez DO [Primary Care Provider] - 1-2 days Time of Disposition: 19:48
[2022-07-07 18:41] LABS: Partial Thromboplastin Time 22.3 sec (22.0-30.0); Prothrombin Time 10.2 sec (9.0-12.0)
--- NOTE | 2022-07-07 19:27 | CT ---
EXAMINATION TYPE: CT angio chest DATE OF EXAM: 07/07/2022 7:13 PM COMPARISON: 12/26/2012 HISTORY: pos d dimer, chest pain, sob CT DLP: 885.3 mGycm Automated exposure control for dose reduction was used. CONTRAST: CTA scan of the thorax is performed with IV Contrast, patient injected with 100ml mL of Isovue 370, p ulmonary embolism protocol. . FINDINGS: LUNGS: The lungs are grossly clear, there is no concerning consolidative pneumonia identified. Ther e is no pleural effusion or pneumothorax seen. The tracheobronchial tree is patent. On axial image 6 0 within the anterior segment right upper lobe there is a 1 mm nodule too small to characterize. Find ing likely benign. MEDIASTINUM: There is less than optimal enhancement of the pulmonary artery and its branches, grossly there is a small focal area of reduced enhancement on axial image 53 and 54 within the left upper lo be arterial branch. There are no greater than 1 cm hilar or mediastinal lymph nodes. Tiny pericardia l effusion is seen. OTHER: There is a hiatal hernia. Multilevel hypertrophic and degenerative changes of the spine. IMPRESSION: 1. Lack of enhancement of a a small left upper lobe pulmonary arterial branch noted best on axial brianne ge 53 which likely is artifactual but should be correlated clinically to exclude a small pulmonary em bolism. Correlate clinically.
[2022-07-07] MEDS ORDERED: HEPARIN SODIUM 1,000 UN/ML (10ML VL) IV ONE (19:40)
[2022-07-07] MEDS ORDERED: HEPARIN SODIUM 1,000 UN/ML (10ML VL) IV PRN (19:40)
[2022-07-07] MEDS ORDERED: ONDANSETRON 4 MG/2 ML VIAL IVP PRN (19:41)
[2022-07-07] MEDS ORDERED: NALOXONE 0.4 MG/ML 1 ML VIAL IV PRN (19:41)
[2022-07-07] MEDS ORDERED: MORPHINE SULFATE 4 MG/ML SYRINGE IV PRN (19:41)
[2022-07-07] MEDS ORDERED: ACETAMINOPHEN TAB 325 MG TAB PO PRN (19:41)
[2022-07-07] MEDS ORDERED: HEPARIN SOD,PORK IN 0.45% NACL 25,000 UNIT in 0.45% NACL 1 250ML.BAG IV SCH (19:45)
[2022-07-07] MEDS: SODIUM CHLORIDE 0.9% 1,000 ML IV SCH (19:56)
[2022-07-08 02:21] LABS: Basophils % (A) 0 %; Eosinophils # (A) 0.3 k/uL (0-0.7); Eosinophils % (A) 3 %; HCT 44.4 % (39.0-53.0); HGB 15.4 gm/dL (13.0-17.5); Lymphocytes # (A) 2.6 k/uL (1.0-4.8); Lymphocytes % (A) 27 %; MCH 32.4 pg (25.0-35.0); MCHC 34.7 g/dL (31.0-37.0); MCV 93.4 fL (80.0-100.0); Mean Platelet Volume 8.8; Monocytes # (A) 0.4 k/uL (0-1.0); Monocytes % (A) 4 %; Neutrophils # (A) 5.9 k/uL (1.3-7.7); Neutrophils % (A) 63 %; Platelet Count 222 k/uL (150-450); RBC 4.75 m/uL (4.30-5.90); RDW 14.1 % (11.5-15.5); WBC 9.4 k/uL (3.8-10.6)
[2022-07-08 02:31] LABS: Partial Thromboplastin Time 27.7 sec (22.0-30.0); Prothrombin Time 10.6 sec (9.0-12.0)
[2022-07-08] MEDS ORDERED: ATORVASTATIN 80 MG TAB PO STA (09:29)
[2022-07-08] MEDS ORDERED: ASPIRIN 325 MG TAB PO STA (09:29)
[2022-07-08] MEDS ORDERED: ALPRAZolam 0.5 MG TAB PO PRN (09:29)
[2022-07-08] MEDS ORDERED: NITROGLYCERIN SL TABS 0.4 MG TAB SUBLINGUAL PRN (09:29)
[2022-07-08] MEDS ORDERED: ALPRAZolam 0.25 MG TAB PO PRN (09:29)
[2022-07-08] MEDS ORDERED: SODIUM CHLORIDE 0.9% 1,000 ML in EMPTY BAG 1 BAG IV SCH (09:30)
--- NOTE | 2022-07-08 09:39 | P.CRDCN ---
History of Present Illness History of present illness: no cardiology HISTORY OF PRESENT ILLNESS: This is a 51-year-old male with a past medical history significant for hypertension, hyperlipidemia, hypothyroidism, and occasional use. 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 We have been asked to see the patient in consultation for chest pain. Patient examined at the bedside. Patient states yesterday he developed chest pain and shortness of breath with rather sudden onset. He states the pain was in the middle of his chest and felt like case sharp sensation. He states the pain radiated down his left arm. He reports feeling some numbness in his arm and on the left side of his face. He states he was short of breath and was having a hard time taking a deep breath. He does report the pain was worse with deep inspiration. The patient did not take anything for the pain and came to the ER for further evaluation. The patient states he was still having pain when he got to the ER but it resolved within an hour of being here. He denies having any further chest pain or pressure since coming to the hospital. He does report that his grandfather had CAD at early age but he is unsure of how old he was. The patient is a nonsmoker. He denies any drug use including marijuana. * EKG reveals sinus tachycardia with no signs of acute ischemia. Heart rate 127. * Chest xray negative for acute process * Laboratory data: WBC 9.4. Hemoglobin 15.4. Platelet count 222. D-dimer 0.59. Sodium 142. Potassium 4.4. BUN 16. Creatinine 1.10. Troponin negative 3. * Current home cardiac medications include minoxidil 2.5 mg daily, lisinopril 10 mg daily, and Lipitor 20mg every 48 hours * No previous echocardiogram on file * Patient denies any previous stress testing or cardiac catheterization. REVIEW OF SYSTEMS: At the time of my exam: CONSTITUTIONAL: Denies fever or chills. HEENT: Denies blurred vision, vision changes, or eye pain. Denies hemoptysis CARDIOVASCULAR: Denies chest pain. Denies orthopnea. Denies PND. Denies palpitations RESPIRATORY: Denies shortness of breath. GASTROINTESTINAL: Denies abdominal pain. Denies nausea or vomiting. HEMATOLOGIC: Denies bleeding disorders. GENITOURINARY: Denies any blood in urine. SKIN: Denies pruitis. Denies rash. PHYSICAL EXAM: VITAL SIGNS: Reviewed. GENERAL: Well-developed in no acute distress. HEENT: Head is normocephalic. Pupils are equal, round. Sclerae anicteric. Mucous membranes of the mouth are moist. Neck supple. No JVD or thyromegaly LUNGS: Respirations even and unlabored. Lungs essentially clear to auscultation bilaterally. HEART: Regular rate and rhythm. S1 and S2 heard. ABDOMEN: Soft. Nondistended. Nontender. EXTREMITIES: Normal range of motion. No clubbing or cyanosis. Peripheral pulses intact. No lower extremity edema NEUROLOGIC: Awake and alert. Oriented x 3. ASSESSMENT: Chest pain/possible unstable angina Hypertension Hyperlipidemia Occasional alcohol use Family history of premature coronary artery disease PLAN: Obtain 2-D echo to assess cardiac structure and function Continue IV heparin Add aspirin 81 mg daily Add atorvastatin 40 mg at night. Check lipid panel Add metoprolol tartrate 2.5 mg twice a day Continue home dose of lisinopril Add nitro paste Patient to undergo cardiac catheterization today with Dr. Mckeon Further recommendations pending patient's course Nurse practitioner note has been reviewed by physician. Signing provider agrees with the documented findings, assessment, and plan of care. Past Medical History Past Medical History: Hyperlipidemia, Hypertension, Thyroid Disorder Additional Past Medical History / Comment(s): neck pain, rt shoulder, rt arm numbness tingling History of Any Multi-Drug Resistant Organisms: None Reported Past Surgical History: Back Surgery, Hernia Repair, Tonsillectomy Additional Past Surgical History / Comment(s): PAIN CLINIC PROCEDURES Past Anesthesia/Blood Transfusion Reactions: No Reported Reaction, Family History of Problems w/ Anesthesia Additional Past Anesthesia/Blood Transfusion Reaction / Comment(s): dad ponv Smoking Status: Never smoker - Past Family History Mother Family Medical History: No Reported History Medications and Allergies Home Medications Medication Instructions Recorded Confirmed Type Levothyroxine Sodium [Synthroid] 300 mcg PO [id number] 01/09/19 07/07/22 History Atorvastatin [Lipitor] 20 mg PO Q48H 07/07/22 07/07/22 History PARoxetine HCL [Paxil] 60 mg PO DAILY 07/07/22 07/07/22 History Testosterone Cypionate 200 mg IM MO 07/07/22 07/07/22 History [Depo-Testosterone] lisinopriL [Zestril] 10 mg PO DAILY 07/07/22 07/07/22 History minoxidiL [Loniten] 2.5 mg PO DAILY 07/07/22 07/07/22 History Allergies Allergy/AdvReac Type Severity Reaction Status Date / Time sulfamethoxazole Allergy Rash/Hives Verified 07/07/22 17:50 [From Bactrim] trimethoprim [From Bactrim] Allergy Rash/Hives Verified 07/07/22 17:50 Physical Exam Vitals: Vital Signs Temp Pulse Pulse Resp BP BP Pulse Ox 07/08/22 03:20 98.0 F 86 16 132/73 97 07/07/22 22:34 98.6 F 113 H 16 135/85 98 07/07/22 21:46 104 H 18 138/78 97 07/07/22 20:17 106 H 18 98 07/07/22 19:22 115 H 18 133/85 97 07/07/22 18:40 117 H 18 143/93 100 07/07/22 18:30 116 H 18 142/100 98 07/07/22 17:46 98.8 F 131 H 20 140/109 98 Intake and Output 07/07/22 07/08/22 07/08/22 22:59 06:59 14:59 Intake Total 540.209 Balance 540.209 Intake: IV 20 Invasive Line 1 10 Invasive Line 2 10 Intake, IV Titration 520.209 Amount Heparin Sod,Pork in 0.45% 70.209 NaCl 25,000 unit In 0.45 % NaCl 1 250ml.bag @ 8.17 UNITS/KG/HR 10.006 mls/ hr IV .Q24H [facility]EN[facility] Rx#: [id number] Sodium Chloride 0.9% 1, 450 000 ml @ 75 mls/hr IV . [id number] [facility] Rx#:[id number] Other: Voiding Method Urinal Weight 122.47 kg Results 07/08/22 01:52 07/07/22 18:02 Cardiac Enzymes 07/07/22 07/07/22 07/07/22 Range/Units 18:02 18:02 21:00 AST 46 (17-59) U/L Troponin I <0.012 <0.012 (0.000-0.034) ng/mL 07/08/22 Range/Units 01:52 AST (17-59) U/L Troponin I <0.012 (0.000-0.034) ng/mL Coagulation 07/07/22 07/08/22 Range/Units 18:02 01:52 PT 10.2 10.6 (9.0-12.0) sec APTT 22.3 27.7 (22.0-30.0) sec CBC 07/07/22 07/08/22 Range/Units 18:02 01:52 WBC 9.0 9.4 (3.8-10.6) k/uL RBC 5.30 4.75 (4.30-5.90) m/uL Hgb 16.7 15.4 (13.0-17.5) gm/dL Hct 49.0 44.4 (39.0-53.0) % Plt Count 244 222 (150-450) k/uL Comprehensive Metabolic Panel 07/07/22 Range/Units 18:02 Sodium 142 (137-145) mmol/L Potassium 4.4 (3.5-5.1) mmol/L Chloride 109 H (98-107) mmol/L Carbon Dioxide 23 (22-30) mmol/L BUN 16 (9-20) mg/dL Creatinine 1.10 (0.66-1.25) mg/dL Glucose 134 H (74-99) mg/dL Calcium 9.5 (8.4-10.2) mg/dL AST 46 (17-59) U/L ALT 42 (4-49) U/L Alkaline Phosphatase 87 (38-126) U/L Total Protein 7.5 (6.3-8.2) g/dL Albumin 4.6 (3.5-5.0) g/dL Current Medications Generic Name Dose Route Start Last Admin Trade Name Freq PRN Reason Stop Dose Admin Acetaminophen 650 mg 07/07/22 19:41 Acetaminophen Tab 325 Mg Tab PO Q6HR PRN Mild Pain or Fever > 100.5 Heparin Sodium (Porcine) 0 unit 07/07/22 19:40 07/08/22 02:56 Heparin Sodium 1,000 Un/Ml (10ml Vl) IV 4,000 unit PER PROTOCOL PRN Administration Low PTT Protocol Heparin Sodium/Sodium Chloride 250 mls @ 10.006 mls/hr 07/07/22 19:45 07/08/22 02:57 25,000 unit/ Sodium Chloride IV 11.17 units/kg/hr .Q24H [facility]ENEE 13.68 mls/hr Titration Protocol 8.17 UNITS/KG/HR Sodium Chloride 1,000 mls @ 75 mls/hr 07/07/22 19:45 07/07/22 19:56 Saline 0.9% IV 75 mls/hr .[id number] RENEE Administration Morphine Sulfate 4 mg 07/07/22 19:41 Morphine Sulfate 4 Mg/Ml Syringe IV Q4HR PRN Severe Pain (Scale 7 to 10) Naloxone HCl 0.2 mg 07/07/22 19:41 Naloxone 0.4 Mg/Ml 1 Ml Vial IV Q2M PRN Opioid Reversal Ondansetron HCl 4 mg 07/07/22 19:41 Ondansetron 4 Mg/2 Ml Vial IVP Q8HR PRN Nausea And Vomiting Intake and Output 07/07/22 07/08/22 07/08/22 22:59 06:59 14:59 Intake Total 540.209 Balance 540.209 Intake: IV 20 Invasive Line 1 10 Invasive Line 2 10 Intake, IV Titration 520.209 Amount Heparin Sod,Pork in 0.45% 70.209 NaCl 25,000 unit In 0.45 % NaCl 1 250ml.bag @ 8.17 UNITS/KG/HR 10.006 mls/ hr IV .Q24H [facility] Rx#: [id number] Sodium Chloride 0.9% 1, 450 000 ml @ 75 mls/hr IV . [id number] [facility] Rx#:[id number] Other: Voiding Method Urinal Weight 122.47 kg 07/08/22 01:52 07/07/22 18:02
[2022-07-08 10:33] LABS: Glucose,Whole Blood 93 mg/dL (70-110)
[2022-07-08] MEDS: PARoxetine 20 MG TAB PO SCH (10:39)
[2022-07-08] MEDS: LEVOTHYROXINE 100 MCG TAB PO SCH (10:39)
[2022-07-08] MEDS: SODIUM CHLORIDE 0.9% 1,000 ML IV SCH ×3 (10:39→13:27)
[2022-07-08] MEDS: NITROGLYCERIN OINT 1 INCH/GM PACKET TOPICAL SCH ×2 (10:39→17:43)
[2022-07-08] MEDS: lisinopriL 10 MG TAB PO SCH (10:39)
[2022-07-08 11:05] LABS: Appearance,Urine Clear (Clear); Bilirubin,Urine Negative (Negative); Blood,Urine Negative (Negative); Color,Urine Yellow; Glucose,Urine (UA) Negative (Negative); Ketones,Urine Negative (Negative); Leukocyte Esterase,Urine Negative (Negative); Nitrite,Urine Negative (Negative); Protein,Urine Trace (Negative); Specific Gravity,Urine 1.042 (1.001-1.035); Urobilinogen,Urine <2.0 mg/dL (<2.0)
--- NOTE | 2022-07-08 12:23 | CA ---
Transthoracic Echo Report Name: Mp Mata Age: 51 Gender: M : 1970 Exam Date: 07/08/2022 07:36 Exam Location: [facility] Ht (in): 72 Wt (lb): 276 Ordering Physician: Syed Baires MD Attending/Referring Phys: [id number], Dequan Rivet Flunky Everton Sheehan RDCS Procedure CPT: Indications: PE/CP Cardiac Hx: HTN; CP; Obesity Technical Quality: Poor Contrast 1: Lumason Total Dose (mL): 4 Contrast 2: Total Dose (mL): MEASUREMENTS (Male / Female) Normal Values 2D ECHO LV Diastolic Diameter PLAX 4.6 cm 4.2 - 5.9 / 3.9 - 5.3 cm LV Systolic Diameter PLAX 2.8 cm LV Fractional Shortening PLAX 39.4 % IVS Diastolic Thickness 1.4 cm 0.6 - 1.0 / 0.6 - 0.9 cm IVS Systolic Thickness 1.9 cm LVPW Diastolic Thickness 1.5 cm 0.6 - 1.0 / 0.6 - 0.9 cm LVPW Systolic Thickness 2.1 cm LV Relative Wall Thickness 0.6 RV Internal Dim ED PLAX 3.8 cm LVOT Diameter 2.2 cm LA Systolic Diameter LX 3.5 cm 3.0 - 4.0 / 2.7 - 3.8 cm Ascending Aorta Diameter 3.0 cm M-MODE Aortic Root Diameter MM 3.1 cm LA Systolic Diameter MM 4.0 cm LA Ao Ratio MM 1.3 MV E Point Septal Separation 1.2 cm AV Cusp Separation MM 1.8 cm DOPPLER AV Peak Velocity 113.7 cm/s AV Peak Gradient 5.2 mmHg MV Peak Velocity 96.8 cm/s MV Peak Gradient 3.7 mmHg MV Mean Velocity 68.3 cm/s MV Mean Gradient 2.1 mmHg MV Velocity Time Integral 24.3 cm MV Deceleration Schleicher 466.6 cm/s??? MR Peak Velocity 71.0 cm/s MR Peak Gradient 2.0 mmHg Mitral E Point Velocity 70.7 cm/s Mitral A Point Velocity 84.7 cm/s Mitral E to A Ratio 0.8 MV Deceleration Time 151.5 ms MV E' Velocity 8.9 cm/s Mitral E to MV E' Ratio 7.9 TR Peak Velocity 91.3 cm/s TR Peak Gradient 3.3 mmHg Right Ventricular Systolic Press 8.3 mmHg PV Peak Velocity 93.0 cm/s PV Peak Gradient 3.5 mmHg FINDINGS Left Ventricle Left ventricular ejection fraction is estimated at 55-60 %. Mild concentric left ventricular hypertrophy. Grade 1 diastolic dysfunction. Normal systolic function. Right Ventricle Normal right ventricular size and function. Right Atrium Normal right atrial size. Left Atrium Mild left atrial dilatation. Mitral Valve Structurally normal mitral valve. Trace mitral regurgitation. Aortic Valve Trileaflet aortic valve. Tricuspid Valve Trace to mild tricuspid regurgitation. Pulmonic Valve Structurally normal pulmonic valve. Pericardium Normal pericardium. Echo free space anterior to the right ventricle likely represents a fat pad. Aorta Normal size aortic root and proximal ascending aorta. CONCLUSIONS Concentric left ventricular hypertrophy with normal LV systolic function Previewed by: Dr. Brian Mckeon MD (Electronically Signed) Final Date: 08 July 2022 12:22
[2022-07-08] MEDS ORDERED: VERAPAMIL 2.5 MG/ML 2 ML AMP ONE (12:26)
[2022-07-08] MEDS ORDERED: fentaNYL (PF) 50 MCG/ML 2 ML AMP ONE (12:27)
[2022-07-08] MEDS ORDERED: fentaNYL (PF) 50 MCG/1 ML VIAL IVP ONE (12:34)
[2022-07-08] MEDS ORDERED: LIDOCAINE 1% INJ 10MG/ML (5 ML VIAL-PF) SQ ONE (12:34)
[2022-07-08] MEDS ORDERED: MIDAZOLAM 2 MG/2 ML VIAL IVP ONE (12:34)
[2022-07-08] MEDS ORDERED: HEPARIN SODIUM 1,000 UN/ML (10ML VL) ONE (12:35)
[2022-07-08] MEDS ORDERED: VERAPAMIL SYRINGE (5 MG/10 ML) INTRAARTER ONE (12:39)
[2022-07-08] MEDS ORDERED: HEPARIN SODIUM 1,000 UN/ML (10ML VL) IV ONE (12:39)
[2022-07-08] MEDS ORDERED: IV FLUID CONTINUATION 1,000 ML IV ONE (12:40)
[2022-07-08] MEDS ORDERED: IOPAMIDOL-370 125ML BTL INJ ONE (12:43)
[2022-07-08] MEDS ORDERED: RX INFO: IV CONTRAST WAS GIVEN 1 EACH MISC MISCELLANE PRN (12:56)
--- NOTE | 2022-07-08 13:02 | HP ---
HISTORY AND PHYSICAL CHIEF COMPLAINTS: Chest pain, shortness of breath. HISTORY OF PRESENT ILLNESS: This is a 51-year-old gentleman with a past medical history of multiple medical issues including hypertension, hyperlipidemia, admitted with central chest pain and also has some shortness of breath. The troponins are negative and D-dimer is normal but left pulmonary artery embolism was suspected but poor methodology was also noted. Cardiology is following the patient, recommended cardiac catheterization. There is no history of any fever, rigors, or chills. PAST MEDICAL HISTORY: Reviewed include hypertension, hyperlipidemia, rest of the history and rest of the chart is also reviewed. HOME MEDICATIONS: Reviewed, lisinopril, doses and rest of medication are noted. ALLERGIES: Bactrim. FAMILY HISTORY: No history of heart disease or strokes in the family. SOCIAL HISTORY: No history of smoking. Occasional alcohol intake. REVIEW OF SYSTEMS: A 14-point review is negative except as mentioned earlier. PHYSICAL EXAMINATION: VITAL SIGNS: Pulse 96, blood pressure 120/60, respirations 21. HEENT: Conjunctivae normal. NECK: No jugular venous distention. CARDIOVASCULAR: S1, S2. RESPIRATIONS: Clear to auscultation. ABDOMEN: Soft. NERVOUS SYSTEM: No focal deficits. LABORATORY DATA: Noted. ASSESSMENT: 1. Chest pain, possible unstable angina, rule out coronary artery disease. 2. Rule out pulmonary embolism. 3. Hypertension. 4. Hyperlipidemia. 5. Multiple medical issues. RECOMMENDATIONS AND DISCUSSION: This 51-year-old gentleman presented with multiple complex medical issues. Monitor the patient closely. IV heparin, cardiology, planning a cardiac catheterization, beta blockers, antiplatelet agents. I would also recommend a pulmonary consultation with Dr. Betancourt, I told the possibility of pulmonary embolism. Prognosis guarded. Further recommendations will follow. Repeat labs. See orders for details. MMODL / IJN: [id number] /
--- NOTE | 2022-07-08 13:07 | P.CNPUL ---
History of Present Illness Consult date: 07/08/22 Requesting physician: Rao Banerjee Reason for consult: other (Chest pain and shortness of breath) Chief complaint: Chest pain and shortness of breath History of present illness: This is a 51-year-old white male with no previous significant past medical history except for dyslipidemia, hypothyroidism and hypertension. Nonsmoker, occasional drinker, patient presented to the ER with 1 hour history of substernal chest pain. 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 Pain radiated to his left neck and his left arm, felt numbness and tingling in his left face. Also develop shortness of breath with symptoms must have lasted about an hour. Patient was evaluated the ER, CBC was normal. Troponins were normal. EKG showed mostly sinus tachycardia, no acute ischemic changes noted on the EKG. D-dimer was normal. CT angiogram of the chest was done and the radiologist raised of a small left upper lobe arterial branch and he felt his mostly artifactual. His index of suspicion for pulmonary embolism is extremely low. Clinically the index of suspicion for pulmonary embolism is quite low. Nonetheless I was asked to see this patient in consultation for possible rule out pulmonary embolism. Patient was already seen by cardiology, and he is undergoing cardiac catheterization in the next hour or so. During my evaluation, the patient has minimal vague chest discomfort Review of Systems Constitutional: Negative HEENT: Negative Pulmonary: Negative Cardiac: As noted in HPI Hematologic: Negative Endocrine: Negative GI: Negative genitourinary: Negative Neurologic: Negative Psychiatric: Negative Skin: Negative Past Medical History Past Medical History: Hyperlipidemia, Hypertension, Thyroid Disorder Additional Past Medical History / Comment(s): neck pain, rt shoulder, rt arm numbness tingling History of Any Multi-Drug Resistant Organisms: None Reported Past Surgical History: Back Surgery, Hernia Repair, Tonsillectomy Additional Past Surgical History / Comment(s): PAIN CLINIC PROCEDURES Past Anesthesia/Blood Transfusion Reactions: No Reported Reaction, Family Histor y of Problems w/ Anesthesia Additional Past Anesthesia/Blood Transfusion Reaction / Comment(s): selena rosa Smoking Status: Never smoker - Past Family History Mother Family Medical History: No Reported History Medications and Allergies Home Medications Medication Instructions Recorded Confirmed Type Levothyroxine Sodium [Synthroid] 300 mcg PO AC-BRKFST 01/09/19 07/07/22 History Atorvastatin [Lipitor] 20 mg PO Q48H 07/07/22 07/07/22 History PARoxetine HCL [Paxil] 60 mg PO DAILY 07/07/22 07/07/22 History Testosterone Cypionate 200 mg IM MO 07/07/22 07/07/22 History [Depo-Testosterone] lisinopriL [Zestril] 10 mg PO DAILY 07/07/22 07/07/22 History minoxidiL [Loniten] 2.5 mg PO DAILY 07/07/22 07/07/22 History Allergies Allergy/AdvReac Type Severity Reaction Status Date / Time sulfamethoxazole Allergy Rash/Hives Verified 07/07/22 17:50 [From Bactrim] trimethoprim [From Bactrim] Allergy Rash/Hives Verified 07/07/22 17:50 Physical Exam Vitals: Vital Signs Temp Pulse Pulse Resp BP BP Pulse Ox 07/08/22 11:49 97.0 F L 96 21 121/69 96 07/08/22 09:23 93 L 07/08/22 08:00 96.7 F L 92 19 114/67 94 L 07/08/22 03:20 98.0 F 86 16 132/73 97 07/07/22 22:34 98.6 F 113 H 16 135/85 98 07/07/22 21:46 104 H 18 138/78 97 07/07/22 20:17 106 H 18 98 07/07/22 19:22 115 H 18 133/85 97 07/07/22 18:40 117 H 18 143/93 100 07/07/22 18:30 116 H 18 142/100 98 07/07/22 17:46 98.8 F 131 H 20 140/109 98 Intake and Output 07/07/22 07/08/22 07/08/22 22:59 06:59 14:59 Intake Total 540.209 383.604 Balance 540.209 383.604 Intake: IV 20 294 Invasive Line 1 10 Invasive Line 2 10 Sodium Chloride 0.9% 1, 244 000 ml In Empty Bag 1 bag @ 1 ML/KG/HR 122.47 mls/ hr IV .Q8H10M [facility] Rx#: [id number] Intake, IV Titration 520.209 89.604 Amount Heparin Sod,Pork in 0.45% 70.209 89.604 NaCl 25,000 unit In 0.45 % NaCl 1 250ml.bag @ 8.17 UNITS/KG/HR 10.006 mls/ hr IV .Q24H [facility] Rx#: [id number] Sodium Chloride 0.9% 1, 450 000 ml @ 75 mls/hr IV . [id number] [facility] Rx#:[id number] Other: Voiding Method Urinal Weight 122.47 kg Physical Exam: Revealed a 51-year-old white male in no distress on room air. O2 saturation is 96 Head: Atraumatic normocephalic. HEENT:[Neck is supple.] [No neck masses.] [No thyromegaly.] [No JVD.] Chest: [Clear throughout, no crackles, no rhonchi, no wheezes.] Cardiac Exam: [Normal S1 and S2, no S3 gallop, no murmur.] Abdomen: [Soft, nontender, no megaly, no rebound, no guarding, normal bowel sounds.] Extremities: [No clubbing, no edema, no cyanosis.] Neurological Exam: [No focal neurologic deficit.] Alert oriented 3. Psychiatric: Normal mood affect and normal mental status examination. Skin: No rash Results - Laboratory Findings CBC and BMP: 07/08/22 01:52 07/07/22 18:02 PT/INR, D-dimer PT 10.6 sec (9.0-12.0) 07/08/22 01:52 INR 1.0 (<1.2) 07/08/22 01:52 D-Dimer 0.59 mg/L FEU (<0.60) 07/07/22 18:02 Abnormal lab findings: Abnormal Labs 07/07/22 07/08/22 07/08/22 18:02 08:20 10:14 APTT 43.3 H Chloride 109 H Glucose 134 H Ur Specific [place] 1.042 H Urine Protein Trace H - Diagnostic Findings CT scan - chest: image reviewed (As noted in HPI) Assessment and Plan Assessment: Impression: Chest pain most likely cardiac in nature based on the clinical history. Strongly doubt pulmonary embolism based on the clinical history negative d-dimer and basically negative CT angiogram of the chest Benign essential hypertension Dyslipidemia 6 obesity Recommendation: Agree with cardiac catheterization No need for any further workup, no need for venous Doppler and no need for VQ scan at this point. We'll continue to follow Time with Patient: Greater than 30
[2022-07-08 15:41] LABS: Chol/HDL Ratio 3.73 Ratio; LDL Cholesterol,Calculated 73.7 mg/dL (0.0-131.0)
[2022-07-08] MEDS ORDERED: ATORVASTATIN 40 MG TAB PO SCH (21:00)
[2022-07-08] MEDS: METOPROLOL TARTRATE 12.5 MG TAB PO SCH (21:11)
--- NOTE | 2022-07-08 23:11 | CC ---
CARDIAC CATHETERIZATION REPORT INDICATION: Unstable angina. PROCEDURE NOTE: After obtaining informed consent, left heart catheterization and coronary angiogram were performed via the right radial artery using standard Rajan catheters. The patient tolerated the procedure well without any obvious immediate complications. The patient received moderate conscious sedation. Total sedation time was 11 minutes. Right radial artery access was obtained using Seldinger technique. A 6-Armenian sheath was placed, and catheters and wires were floated into the ascending aorta under fluoroscopic guidance. The patient tolerated the procedure well without any obvious immediate complications. He received verapamil and heparin per protocol. A TR band was used for hemostasis. FINDINGS: HEMODYNAMICS: 1. Left ventricular end-diastolic pressure is 11 mm. There is no significant gradient across the aortic valve. 2. Left ventriculogram: Left ventriculogram is not performed. ANGIOGRAPHIC DATA: 1. Right coronary artery: Right coronary artery is a large dominant vessel and is free of stenosis. 2. Left main coronary artery is a normal-sized vessel and is free of stenosis. It divides into left anterior descending coronary artery and circumflex coronary artery. 3. LAD and its branches, circumflex coronary artery and its branches are free of significant stenosis. CONCLUSIONS: 1. Normal coronary arteries. 2. Normal left ventricular end-diastolic pressure. PLAN: The patient's chest discomfort is noncardiac in origin and his management is going to be in the form of risk factor modification and optimal medical therapy. MMODL / IJN: [id number] /
[2022-07-09] MEDS: NITROGLYCERIN OINT 1 INCH/GM PACKET TOPICAL SCH ×2 (00:32→10:02)
[2022-07-09] MEDS: SODIUM CHLORIDE 0.9% 1,000 ML IV SCH ×2 (04:04→18:15)
[2022-07-09] MEDS: LEVOTHYROXINE 100 MCG TAB PO SCH (06:48)
[2022-07-09] MEDS ORDERED: HEPARIN SODIUM,PORCINE 10,000 UNIT in SODIUM CHLORIDE 0.9% 1,000 ML IRRIGATION PRN (07:00)
[2022-07-09] MEDS ORDERED: HEPARIN SODIUM,PORCINE 2,500 UNIT in SODIUM CHLORIDE 0.9% 250 ML IRRIGATION PRN (07:00)
[2022-07-09] MEDS: METOPROLOL TARTRATE 12.5 MG TAB PO SCH ×2 (10:01→21:01)
[2022-07-09] MEDS: PARoxetine 20 MG TAB PO SCH (10:01)
[2022-07-09] MEDS: lisinopriL 10 MG TAB PO SCH (10:02)
[2022-07-09] MEDS: ASPIRIN 81 MG PO SCH (10:02)
[2022-07-09 10:44] LABS: Basophils % (A) 0 %; Eosinophils # (A) 0.3 k/uL (0-0.7); Eosinophils % (A) 4 %; HCT 43.6 % (39.0-53.0); HGB 14.5 gm/dL (13.0-17.5); Lymphocytes # (A) 1.7 k/uL (1.0-4.8); Lymphocytes % (A) 22 %; MCH 31.3 pg (25.0-35.0); MCHC 33.3 g/dL (31.0-37.0); MCV 93.9 fL (80.0-100.0); Mean Platelet Volume 8.3; Monocytes # (A) 0.3 k/uL (0-1.0); Monocytes % (A) 5 %; Neutrophils % (A) 67 %; Platelet Count 219 k/uL (150-450); RBC 4.64 m/uL (4.30-5.90); RDW 13.7 % (11.5-15.5); WBC 7.4 k/uL (3.8-10.6)
[2022-07-09 10:50] LABS: African American GFR (CKD) >90 (>60 ml/min/1.73 sqM); Anion Gap 4 mmol/L; Blood Urea Nitrogen 12 mg/dL (9-20); Calcium 8.6 mg/dL (8.4-10.2); Carbon Dioxide 31 mmol/L (22-30); Chloride 107 mmol/L (98-107); Glucose 99 mg/dL (74-99); Non-African American GFR(CKD) >90 (>60 ml/min/1.73 sqM); Potassium 4.6 mmol/L (3.5-5.1); Sodium 142 mmol/L (137-145)
--- NOTE | 2022-07-09 11:22 | P.PN ---
Subjective Progress Note Date: 07/09/22 HISTORY OF PRESENT ILLNESS: This is a 51-year-old male with a past medical history significant for hypertension, hyperlipidemia, hypothyroidism, and occasional use. Patient does not follow with a district representative. We have been asked to see the patient in consultation for chest pain. Patient examined at the bedside. Patient states yesterday he developed chest pain and shortness of breath with rather sudden onset. He states the pain was in the middle of his chest and felt like case sharp sensation. He states the pain radiated down his left arm. He reports feeling some numbness in his arm and on the left side of his face. He states he was short of breath and was having a hard time taking a deep breath. He does report the pain was worse with deep inspiration. The patient did not take anything for the pain and came to the ER for further evaluation. The patient states he was still having pain when he got to the ER but it resolved within an hour of being here. He denies having any further chest pain or pressure since coming to the hospital. He does report that his grandfather had CAD at early age but he is unsure of how old he was. The patient is a nonsmoker. He denies any drug use including marijuana. * EKG reveals sinus tachycardia with no signs of acute ischemia. Heart rate 127. * Chest xray negative for acute process * Laboratory data: WBC 9.4. Hemoglobin 15.4. Platelet count 222. D-dimer 0.59. Sodium 142. Potassium 4.4. BUN 16. Creatinine 1.10. Troponin negative 3. * Current home cardiac medications include minoxidil 2.5 mg daily, lisinopril 10 mg daily, and Lipitor 20mg every 48 hours * No previous echocardiogram on file * Patient denies any previous stress testing or cardiac catheterization. 07/09/2022 Patient is status post cardiac catheterization revealing normal coronary arteries and normal left ventricular end-diastolic pressure. Patient examined this morning at the bedside. He denies chest pain or pressure. He denies shortness of breath. Vital signs are stable. Echocardiogram completed revealing ejection fraction 55-60%. Right radial cath site with pulse present. PHYSICAL EXAM: VITAL SIGNS: Reviewed. GENERAL: Well-developed in no acute distress. HEENT: Head is normocephalic. Pupils are equal, round. Sclerae anicteric. Mucous membranes of the mouth are moist. Neck supple. No JVD or thyromegaly LUNGS: Respirations even and unlabored. Lungs essentially clear to auscultation bilaterally. HEART: Regular rate and rhythm. S1 and S2 heard. ABDOMEN: Soft. Nondistended. Nontender. EXTREMITIES: Normal range of motion. No clubbing or cyanosis. Peripheral pulses intact. No lower extremity edema NEUROLOGIC: Awake and alert. Oriented x 3. ASSESSMENT: Chest pain/possible unstable angina, status post cardiac catheterization revealing normal coronary arteries Hypertension Hyperlipidemia Occasional alcohol use Family history of premature coronary artery disease PLAN: Continue current cardiac medications Patient is stable from a cardiac perspective Patient may be discharged home today from a cardiac standpoint Nurse practitioner note has been reviewed by physician. Signing provider agrees with the documented findings, assessment, and plan of care. Objective - Vital Signs Vital signs: Vital Signs Temp 97.4 F L 07/09/22 04:44 Pulse 82 07/09/22 04:44 Resp 16 07/09/22 04:44 BP 115/69 07/09/22 04:44 Pulse Ox 96 07/09/22 04:44 FiO2 Intake & Output 07/08/22 07/09/22 07/09/22 18:59 06:59 18:59 Intake Total 383.604 560 118 Output Total 450 Balance 383.604 110 118 Intake: IV 294 20 Invasive Line 1 20 Sodium Chloride 0.9% 1, 244 000 ml In Empty Bag 1 bag @ 1 ML/KG/HR 122.47 mls/ hr IV .Q8H10M [facility] Rx#: [id number] Intake, IV Titration 89.604 Amount Heparin Sod,Pork in 0.45% 89.604 NaCl 25,000 unit In 0.45 % NaCl 1 250ml.bag @ 8.17 UNITS/KG/HR 10.006 mls/ hr IV .Q24H [facility] Rx#: [id number] Oral 540 118 Output: Urine 450 Other: Voiding Method Urinal # Voids 1 - Labs CBC & Chem 7: 07/09/22 09:10 07/09/22 09:10 Labs: Abnormal Lab Results - Last 24 Hours (Table) 07/08/22 07/09/22 Range/Units 08:20 09:10 Carbon Dioxide 31 H (22-30) mmol/L HDL Cholesterol 36.50 L (40.00-60.00) mg/dL
--- NOTE | 2022-07-09 11:33 | US ---
EXAMINATION TYPE: US venous doppler duplex LE DATE OF EXAM: 07/09/2022 11:11 AM COMPARISON: NONE CLINICAL HISTORY: ? PE. no leg symptoms, possible PE SIDE PERFORMED: Bilateral TECHNIQUE: The lower extremity deep venous system is examined utilizing real time linear array sonog castillo with graded compression, doppler sonography and color-flow sonography. VESSELS IMAGED: Common Femoral Vein Deep Femoral Vein Greater Saphenous Vein * Femoral Vein Popliteal Vein Small Saphenous Vein * Proximal Calf Veins (* superficial vessels) Right Leg: Negative for DVT Left Leg: Negative for DVT Both lower extremity deep venous systems from the common femoral veins to the proximal calf veins are patent and compressible with augmentable flow. IMPRESSION: No evidence of lower extremity DVT bilaterally.
--- NOTE | 2022-07-09 12:09 | P.PN ---
Subjective Progress Note Date: 07/09/22 Principal diagnosis: Chest pain This is a 51-year-old white male with no previous significant past medical history except for dyslipidemia, hypothyroidism and hypertension. Nonsmoker, occasional drinker, patient presented to the ER with 1 hour history of substernal chest pain. 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 Pain radiated to his left neck and his left arm, felt numbness and tingling in his left face. Also develop shortness of breath with symptoms must have lasted about an hour. Patient was evaluated the ER, CBC was normal. Troponins were normal. EKG showed mostly sinus tachycardia, no acute ischemic changes noted on the EKG. D-dimer was normal. CT angiogram of the chest was done and the radiologist raised of a small left upper lobe arterial branch and he felt his mostly artifactual. His index of suspicion for pulmonary embolism i s extremely low. Clinically the index of suspicion for pulmonary embolism is quite low. Nonetheless I was asked to see this patient in consultation for possible rule out pulmonary embolism. Patient was already seen by cardiology, and he is undergoing cardiac catheterization in the next hour or so. During my evaluation, the patient has minimal vague chest discomfort Reevaluated today on 07/09/2022, patient is doing well, he is pain-free, denies any cough wheezing shortness of breath and he denies any chest pain his cardiac catheterization came back basically normal. My index of suspicion for pulmonary embolism is extremely low, however there is no clear-cut explanation to the patient's sudden episode of chest pain and shortness of breath, and considering the CT angiogram of the chest which questioned left upper lobe abnormality in the pulmonary vasculature, I am recommending a VQ scan to put the issue to rest. I'm also recommending a venous Doppler of the lower extremities, and both are negative then the patient could be discharged home and basically pulmonary embolism will be ruled out. In the meantime since my index of suspicion is low I would not recommend anticoagulation therapy for this patient. Objective - Vital Signs Vital signs: Vital Signs Temp 97.4 F L 07/09/22 04:44 Pulse 82 07/09/22 04:44 Resp 16 07/09/22 04:44 BP 115/69 07/09/22 04:44 Pulse Ox 96 07/09/22 04:44 FiO2 Intake & Output 07/08/22 07/09/2223 18:59 06:59 18:59 Intake Total 383.604 560 118 Output Total 450 Balance 383.604 110 118 Intake: IV 294 20 Invasive Line 1 20 Sodium Chloride 0.9% 1, 244 000 ml In Empty Bag 1 bag @ 1 ML/KG/HR 122.47 mls/ hr IV .Q8H10M [facility] Rx#: [id number] Intake, IV Titration 89.604 Amount Heparin Sod,Pork in 0.45% 89.604 NaCl 25,000 unit In 0.45 % NaCl 1 250ml.bag @ 8.17 UNITS/KG/HR 10.006 mls/ hr IV .Q24H [facility] Rx#: [id number] Oral 540 118 Output: Urine 450 Other: Voiding Method Urinal # Voids 1 - Exam Physical Exam: Revealed a 51-year-old white male in no distress on room air. O2 saturation is 96 Head: Atraumatic normocephalic. HEENT:[Neck is supple.] [No neck masses.] [No thyromegaly.] [No JVD.] Chest: [Clear throughout, no crackles, no rhonchi, no wheezes.] Cardiac Exam: [Normal S1 and S2, no S3 gallop, no murmur.] Abdomen: [Soft, nontender, no megaly, no rebound, no guarding, normal bowel sounds.] Extremities: [No clubbing, no edema, no cyanosis.] Neurological Exam: [No focal neurologic deficit.] Alert oriented 3. Psychiatric: Normal mood affect and normal mental status examination. Skin: No rash - Labs CBC & Chem 7: 07/09/22 09:10 07/09/22 09:10 Labs: Abnormal Lab Results - Last 24 Hours (Table) 07/08/22 07/09/22 Range/Units 08:20 09:10 Carbon Dioxide 31 H (22-30) mmol/L HDL Cholesterol 36.50 L (40.00-60.00) mg/dL Assessment and Plan Assessment: Impression: Chest pain , etiology remains unclear, coronary artery disease was ruled out. Strongly doubt pulmonary embolism based on the clinical history negative d-dimer and basically negative CT angiogram of the chest Benign essential hypertension Dyslipidemia obesity Recommendation: Explained to the patient my index of suspicion is very low for pulmonary embolism Nonetheless considering the abnormality noted on the CT angiogram and the patient's clinical history, I would recommend a VQ scan and venous Doppler of the lower extremities, and if both are negative patient could be discharged home We'll continue to follow Time with Patient: Less than 30
--- NOTE | 2022-07-09 13:03 | NM ---
EXAMINATION TYPE: NM pul vent and perfuse DATE OF EXAM: 07/09/2022 COMPARISON: NONE HISTORY: Shortness of breath TECHNIQUE: Utilizing inhalation of 60.3 mCi Tc 99m DTPA aerosol and intravenous injection of 4.6 mCi of Tc 99m MAA, ventilation and perfusion images are acquired post injection in multiple projections. FINDINGS: Normal radiotracer distribution is noted in the lungs. There is no evidence of mismatched defects. IMPRESSION: Low probability for pulmonary embolism.
[2022-07-09] MEDS ORDERED: ATORVASTATIN 20 MG TAB PO SCH (21:00)
--- NOTE | 2022-07-10 01:15 | PN ---
PROGRESS NOTE DATE OF SERVICE: 07/09/2022 SUBJECTIVE: This is a 51-year-old gentleman, who was admitted with significant chest symptoms. Had an equivocal CT angiogram, which was poor quality. Dr. Betancourt has recommended V/Q scan and ultrasound of the legs for definitive conclusion about the pulmonary embolism issue. OBJECTIVE: VITAL SIGNS: Pulse is 82, blood pressure is 115/69, respirations 16. CHEST: Clear to auscultation. CARDIOVASCULAR: S1, S2 muffled. ABDOMEN: Soft. NERVOUS SYSTEM: Nonfocal. LABORATORY DATA: Reviewed. ASSESSMENT: 1. Chest pain, possible unstable angina, rule out coronary artery disease. 2. Rule out pulmonary embolism. Awaiting V/Q scan ordered by Dr. Betancourt. 3. Hypertension. 4. Hyperlipidemia. 5. Multiple medical issues. RECOMMENDATIONS AND DISCUSSION: Recommend to continue current management, continue symptomatic treatment. Closely follow with Cardiology and Pulmonology. Prognosis guarded. Further recommendations to follow. Dr. Almendarez will follow tomorrow. MMODL / IJN: [id number] /
[2022-07-10] MEDS: SODIUM CHLORIDE 0.9% 1,000 ML IV SCH (05:13)
[2022-07-10] MEDS: LEVOTHYROXINE 100 MCG TAB PO SCH (06:03)
--- NOTE | 2022-07-10 08:25 | P.DS ---
Providers Date of admission: 07/07/22 19:41 Expected date of discharge: 07/10/22 Attending physician: Rao Banerjee Consults: 07/07/22 19:41 Consult Physician Routine Consulting Provider: Bhavin Granado Consult Reason/Comments: UA/possible PE Do you want consulting provider notified?: Yes 07/08/22 10:02 Consult Physician Urgent Consulting Provider: Max Betancourt Reason/Comments: PE Do you want consulting provider notified?: Yes Primary care physician: Martha Sanchez [facility] Course: This is a 51-year-old male with a past medical history significant for hypertension, hyperlipidemia, hypothyroidism, and occasional tobacco use who presented to the ED with chest pain. Patient states yesterday he developed chest pain and shortness of breath with rather sudden onset. He states the pain was in the middle of his chest and felt like case sharp sensation. He states the pain radiated down his left arm. He reports feeling some numbness in his arm and on the left side of his face. He states he was short of breath and was having a hard time taking a deep breath. He does report the pain was worse with deep inspiration. The patient did not take anything for the pain and came to the ER for further evaluation. The patient states he was still having pain when he got to the ER but it resolved within an hour of being here. He denies having any further chest pain or pressure since coming to the hospital. He does report that his grandfather had CAD at early age but he is unsure of how old he was. The patient is a nonsmoker. He denies any drug use including marijuana. 07/09/2022 Patient is status post cardiac catheterization revealing normal coronary arteries and normal left ventricular end-diastolic pressure. Patient examined this morning at the bedside. He denies chest pain or pressure. He denies shortness of breath. Vital signs are stable. Echocardiogram completed revealing ejection fraction 55-60%. Right radial cath site with pulse present. 07/10/2022. Pt underwent LEVD medhat and pulmonary perfusion scan both of which were negative for DVT/PE. Pt discharged in stable condition and recommended to follow closely with his PCP as an outpatient. Patient Condition at Discharge: Stable Plan - Discharge Summary Discharge Rx Participant: Yes New Discharge Prescriptions: Continue Levothyroxine Sodium [Synthroid] 300 mcg PO AC-BRKFST Atorvastatin [Lipitor] 20 mg PO Q48H Testosterone Cypionate [Depo-Testosterone] 200 mg IM MO lisinopriL [Zestril] 10 mg PO DAILY minoxidiL [Loniten] 2.5 mg PO DAILY PARoxetine HCL [Paxil] 60 mg PO DAILY Discharge Medication List Levothyroxine Sodium [Synthroid] 300 mcg PO AC-BRKFST 01/09/19 [History] Atorvastatin [Lipitor] 20 mg PO Q48H 07/07/22 [History] PARoxetine HCL [Paxil] 60 mg PO DAILY 07/07/22 [History] Testosterone Cypionate [Depo-Testosterone] 200 mg IM MO 07/07/22 [History] lisinopriL [Zestril] 10 mg PO DAILY 07/07/22 [History] minoxidiL [Loniten] 2.5 mg PO DAILY 07/07/22 [History] Follow up Appointment(s)/Referral(s): Martha Sanchez DO [Primary Care Provider] - 1-2 days Brian Mckeon MD [STAFF PHYSICIAN] - 1 Week Patient Instructions/Handouts: *Surgery [facility] - After Heart Catheterization - Shift Foreman Instructions, Angina (DC) Activity/Diet/Wound Care/Special Instructions: Patient discharge Instructions should include: a. No flexing at the wrist or lifting anything heavier than 5 pounds for 5 days. b. Remove any dressing over puncture site in 24hours and leave open to air. c. Do not submerge wrist in water for 3 days. d. Review with patient circulation checks, i.e.: najma, sensation, numbness, temperature, and color. Discharge Disposition: HOME SELF-CARE
[2022-07-10] MEDS: PARoxetine 20 MG TAB PO SCH (08:44)
[2022-07-10] MEDS: ASPIRIN 81 MG PO SCH (08:44)
[2022-07-10] MEDS: lisinopriL 10 MG TAB PO SCH (08:44)
[2022-07-10] MEDS: METOPROLOL TARTRATE 12.5 MG TAB PO SCH (08:44)
[2022-07-10 09:47] VITALS: BP 117/70; PULSE 80; RESP 15; TEMP 96.6
--- NOTE | 2022-07-10 13:00 | PN ---
PROGRESS NOTE DATE OF SERVICE: 07/10/2022 SUBJECTIVE: The patient is seen today in room 365. The patient is on room air. The patient had a ventilation perfusion lung scan that was low probability for pulmonary embolism. The patient is not receiving any IV fluids. He is resting comfortably, and denies any shortness of breath, chest pain, or any other pulmonary complaints at this time. Current laboratory data is reviewed, and is from yesterday primarily. The ventilation- perfusion lung scan was also reviewed. OBJECTIVE: VITAL SIGNS: Current vital signs include temperature 96.6, heart rate 80, respiratory rate 15, blood pressure 117/70 with mean of 85 and room air saturation is 96%. GENERAL: He appears in no acute distress. HEENT: Grossly unremarkable. NECK: Supple, full range of motion. No adenopathy or thyromegaly. Neck veins are flat. CARDIOVASCULAR: Reveals regular rhythm and rate. S1, S2 normal. No S3, S4, or murmur. LUNGS: Reveal clear breath sounds. No wheezes, rhonchi, or crackles. ABDOMEN: Soft but obese. Bowel sounds are heard. EXTREMITIES: Intact. No cyanosis, clubbing, or edema. SKIN: Reveals no rash. NEUROLOGIC: Brief but nonfocal. Again, as mentioned, no new laboratory data. The ventilation-perfusion lung scan was reviewed. ASSESSMENT: 1. Chest pain likely related to cardiac disease. 2. Strongly doubt pulmonary embolism and more recently, the patient had a very low probability V/Q scan. 3. Benign essential hypertension. 4. Hyperlipidemia. 5. Obesity. PLAN: The patient is stable. He could be considered for discharge from the primary service. The results of the ventilation-perfusion lung scan was shared with him. No additional recommendations are made at this time. Prognosis is guarded. MMODL / IJN: [id number] /
== END 2022-07-10 10:48 | disposition home or self-care (01) ==
LOC: EC 17:44 → 3SCARD 19:41 → INTOOBSV 19:41 → 3SCARD 21:41 → UNDODISIN 07-10 10:48
PROVIDERS: ADMIT Family Medicine; ATTEND Family Medicine
DX: I20.0 Unstable angina (principal); R00.0 Tachycardia, unspecified; E78.5 Hyperlipidemia, unspecified; I31.39 Other pericardial effusion (noninflammatory); F41.9 Anxiety disorder, unspecified; R91.1 Solitary pulmonary nodule; I10 Essential (primary) hypertension; E03.9 Hypothyroidism, unspecified; F10.90 Alcohol use, unspecified, uncomplicated; E66.9 Obesity, unspecified; I08.1 Rheumatic disorders of both mitral and tricuspid valves; K44.9 Diaphragmatic hernia without obstruction or gangrene; Z79.899 Other long term (current) drug therapy; Z79.890 Hormone replacement therapy; Z88.2 Allergy status to sulfonamides; Z88.8 Allergy status to other drugs, medicaments and biological substances; Z82.49 Family history of ischemic heart disease and other diseases of the circulatory system; Z68.36 Body mass index [BMI] 36.0-36.9, adult
CPT/HCPCS: 96361 ×3; 96366 ×3; 96365; 99285; 36415; 94760 ×2; 93005; 93458; 85379; 80061; 80053; 80048; 83690; 83735; 84484 ×2; 85025 ×3; 85610 ×2; 85730 ×2; 81003; 83036; 71046; 93970; 71275; 78582; G0378 ×4; C8929; C1769; C1894; A9540; A9567; J2250; J2001; J1644 ×3; Q9950; Q9967 ×2; J3010; 93306

== ENCOUNTER 2024-10-20 12:45 | Day surgery (SDC) | payer MEDICARE ==
[2024-10-20] MEDS: IV FLUID CONTINUATION 1,000 ML IV ONE (13:48)
[2024-10-20] MEDS: LIDOCAINE 1% (10MG/ML) FOR IV START INTRADERMA STA (13:55)
[2024-10-20] MEDS: LACTATED RINGERS 1,000 ML IV SCH (13:55)
[2024-10-20 13:57] VITALS: TEMP 98
[2024-10-20] MEDS ORDERED: PROPOFOL 10 MG/ML 20 ML VIAL IV ONE (14:29)
--- NOTE | 2024-10-20 14:33 | P.GSHP ---
History of Present Illness H&P Date: 10/20/24 Chief Complaint: Screening colonoscopy This is a 53-year-old male presents today for screening colonoscopy. Patient states he has a previous history of polyps. Past Medical History Past Medical History: GERD/Reflux, Hyperlipidemia, Hypertension, Sleep Apnea/CPAP/BIPAP, Thyroid Disorder Additional Past Medical History / Comment(s): neck pain, herniated discs in neck, left shoulder pain, left arm numbness & tingling, hx possible PE July 2022. no CPAP. History of Any Multi-Drug Resistant Organisms: None Reported Past Surgical History: Back Surgery, Hernia Repair, Tonsillectomy Additional Past Surgical History / Comment(s): PAIN CLINIC PROCEDURES, back surg x4, colonoscopy Past Anesthesia/Blood Transfusion Reactions: No Reported Reaction, Family History of Problems w/ Anesthesia Additional Past Anesthesia/Blood Transfusion Reaction / Comment(s): dad ponv Smoking Status: Never smoker - Past Family History Mother Family Medical History: No Reported History Medications and Allergies Home Medications Medication Instructions Recorded Confirmed Type Levothyroxine Sodium [Synthroid] 225 mcg PO AC-BRKFST 01/09/19 10/20/24 History Atorvastatin [Lipitor] 20 mg PO DAILY 07/07/22 10/20/24 History Testosterone Cypionate 200 mg IM MO 07/07/22 10/20/24 History [Depo-Testosterone] minoxidiL [Loniten] 2.5 mg PO DAILY 07/07/22 10/20/24 History Loratadine [Claritin] 10 mg PO DAILY 10/17/24 10/20/24 History Losartan [Cozaar] 50 mg PO DAILY 10/17/24 10/20/24 History Omeprazole Magnesium [PriLOSEC OTC] 20 mg PO DAILY 10/17/24 10/20/24 History QUEtiapine [SEROquel] 200 mg PO HS 10/17/24 10/20/24 History Sertraline [Zoloft] 200 mg PO DAILY 10/17/24 10/20/24 History Allergies Allergy/AdvReac Type Severity Reaction Status Date / Time sulfamethoxazole Allergy Rash/Hives Verified 10/20/24 13:51 [From Bactrim] trimethoprim [From Bactrim] Allergy Rash/Hives Verified 10/20/24 13:51 Surgical - Exam Vital Signs Temp Pulse Resp BP Pulse Ox 98 F 85 16 144/93 97 10/20/24 13:53 10/20/24 13:53 10/20/24 13:53 10/20/24 13:53 10/20/24 13:53 - General well developed, well nourished, no distress - Eyes PERRL - ENT normal pinna - Neck no masses - Respiratory normal expansion - Cardiovascular Rhythm: regular - Abdomen Abdomen: soft, non tender Assessment and Plan Assessment: Will perform screening colonoscopy.
--- NOTE | 2024-10-20 14:44 | P.OP ---
Date of Procedure: 10/20/24 Preoperative Diagnosis: Screening colonoscopy Postoperative Diagnosis: Diverticulosis Procedure(s) Performed: Colonoscopy Anesthesia: MAC Surgeon: Juan Alberto Benson Pathology: none sent Condition: stable Disposition: PACU Description of Procedure: The patient was placed on the endoscopy table in the lateral position. He received IV sedation. Digital rectal exam was performed. This revealed no abnormalities. The flexible colonoscope was then placed patient A anus and passed throughout the entire colon. The ileocecal valve was visualized. The cecum, ascending and transverse colon appeared normal. In the descending sigmoid colon there is moderate diverticular changes. The scope Cinobac the re ctum this appeared normal. The scope was withdrawn for the patient.
[2024-10-20 15:08] VITALS: BP 132/94; PULSE 80; RESP 16
== END 2024-10-20 15:45 | disposition home or self-care (01) ==
LOC: ORWHC2ENDO 12:45
PROVIDERS: ATTEND Surgery
DX: Z12.11 Encounter for screening for malignant neoplasm of colon (principal); K57.30 Diverticulosis of large intestine without perforation or abscess without bleeding; I10 Essential (primary) hypertension; E78.5 Hyperlipidemia, unspecified; G47.33 Obstructive sleep apnea (adult) (pediatric); E03.9 Hypothyroidism, unspecified; K21.9 Gastro-esophageal reflux disease without esophagitis; F41.9 Anxiety disorder, unspecified; F32.A Depression, unspecified; Z79.890 Hormone replacement therapy; Z79.899 Other long term (current) drug therapy; Z86.0100 Personal history of colon polyps, unspecified; Z88.2 Allergy status to sulfonamides; Z88.1 Allergy status to other antibiotic agents
CPT/HCPCS: J2704; G0121